=== PATIENT | male | born 1970 | race American Indian/Alaskan Native ===

== ENCOUNTER 2018-08-17 11:46 | Inpatient (IN) | payer MEDICAID ==
[2018-08-17] MEDS ORDERED: Sodium Chloride 0.9% 1,000 ML IV STA (12:13)
--- NOTE | 2018-08-17 12:19 | ED PDOC ---
HPI: Altered Mental Status Time Seen by Provider: 08/17/18 11:59 Chief Complaint (Nursing): Altered Mental Status Chief Complaint (Provider): Altered Mental Status History Per: Family, Other Onset/Duration Of Symptoms: Hrs (1) Current Symptoms Are (Timing): Better Description Of Symptoms: Difficult To Arouse Additional Complaint(s): 48 year old male brought down from acute rehab after the patient experienced an episode of acute unresponsiveness lasting a few minutes, followed by drooling. Family notes no seizure activity. Patient is non-verbal, but able to indicate no pain and no recollection of event. Past Medical History - Family History Family History: States: Unknown Family Hx - Allergies Allergies/Adverse Reactions: Allergies Allergy/AdvReac Type Severity Reaction Status Date / Time No Known Allergies Allergy Verified 08/17/18 11:57 Review of Systems ROS Statement: Except As Marked, All Systems Reviewed And Found Negative Neurological: Positive for: Other (unresponsiveness; drooling). Negative for: Seizures Physical Exam - Reviewed Nursing Documentation Reviewed: Yes Vital Signs Reviewed: Yes - Physical Exam Appears: Positive for: Non-toxic, No Acute Distress Head Exam: Positive for: ATRAUMATIC, NORMAL INSPECTION, NORMOCEPHALIC Skin: Positive for: Normal Color, Warm, Dry. Negative for: Rash Eye Exam: Positive for: EOMI, Normal appearance, PERRL ENT: Positive for: Normal ENT Inspection Neck: Positive for: Normal, Painless ROM, Supple Cardiovascular/Chest: Positive for: Regular Rate, Rhythm. Negative for: Murmur Respiratory: Positive for: Normal Breath Sounds. Negative for: Respiratory Distress Gastrointestinal/Abdominal: Positive for: Normal Exam, Soft. Negative for: Tenderness Back: Positive for: Normal Inspection. Negative for: L CVA Tenderness, R CVA Tenderness, Vertebral Tenderness Extremity: Positive for: Normal ROM. Negative for: Deformity Neurologic/Psych: Positive for: Alert (awake, able to indicate awareness and responsiveness by mouthing words), Motor/Sensory Deficits (chronic tremors to the upper and lower extremitys with spasticity to the lower extremities) - Laboratory Results Result Diagrams: 08/17/18 12:10 08/17/18 12:10 Medical Decision Making Medical Decision Makin Impression: shortness of breath - resolved Plan: -CT head w/o contrast -EKG -CMP -Urine dip -CBC -CXR -Glucose -1L NS at 150cc/hr -Reevaluation Scribe Attestation: Documented by Nader Newell, acting as a scribe for Sheela Hein MD. Provider Scribe Attestation: All medical record entries made by the Scribe were at my direction and perso bela dictated by me. I have reviewed the chart and agree that the record accurately reflects my personal performance of the history, physical exam, medical decision making, and the department course for this patient. I have also personally directed, reviewed, and agree with the discharge instructions and disposition. Disposition - Clinical Impression Clinical Impression: Seizure - Patient ED Disposition Is Patient to be Admitted: Yes - Disposition Disposition Time: 13:50 Condition: FAIR Forms: [employer] (Albanian) - Pt Status Changed To: Hospital Disposition Of: Observation - POA Present On Arrival: None
--- NOTE | 2018-08-17 12:41 | RAD ---
Date of service: 08/17/2018 HISTORY: cough COMPARISON: No prior. FINDINGS: LUNGS: No active pulmonary disease. PLEURA: No significant pleural effusion identified, no pneumothorax apparent. CARDIOVASCULAR: No aortic atherosclerotic calcification present. Normal cardiac size. No pulmonary vascular congestion. OSSEOUS STRUCTURES: Thoraco lumbar dextroscoliosis. VISUALIZED UPPER ABDOMEN: Partially visualized IVC filter in place. Gastric PEG tube apparent OTHER FINDINGS: None. IMPRESSION: No acute cardiopulmonary pathology. Specifically no pulmonary infiltrate noted. Other findings as above.
--- NOTE | 2018-08-17 13:09 | CT ---
Date of service: 08/17/2018 PROCEDURE: CT HEAD WITHOUT CONTRAST. HISTORY: r/o bleed COMPARISON: None available. TECHNIQUE: Axial computed tomography images were obtained through the head/brain without intravenous contrast. Radiation dose: Total exam DLP = 928.19 mGy-cm. This CT exam was performed using one or more of the following dose reduction techniques: Automated exposure control, adjustment of the mA and/or kV according to patient size, and/or use of iterative reconstruction technique. FINDINGS: HEMORRHAGE: There is an approximately 1.2 cm of relative hyperdensity of a left frontal lobe cortical gyrus which may represent a coalescence of petechial hemorrhage here with thread-like hyperdensity over the left meninges here. Findings are noted on axial series 4, image 32. Surrounding this site there is asymmetrical left subcortical hypodensity in part this is likely due to microvascular ischemic change and/or CSF reabsorption in this patient with large bilateral ventricles. No comparison studies to assess for any interval change here is noted. Note is made that these findings also border left calvarial postsurgical changes. No deeper areas of intraparenchymal hemorrhage are seen. No midline shift seen. No intraventricular blood noted. BRAIN: Periventricular extensive hypodensities compatible with CSF transependymal mole reabsorption and/or microvascular ischemic changes-no comparison studies are available to assess chronicity. These findings are asymmetrically prominent in the left frontal lobe where left frontal lobe subcortical hypodensity surrounds an area of relative left frontal gyral hyperdensity-possibly representing some trace gyral petechial hemorrhage here. No arm deeper intraparenchymal or intraventricular blood noted. VENTRICLES: Third 4th and lateral ventricles all dilated. CALVARIUM: Extensive calvarial changes large sub occipital craniectomy. Left frontal craniotomy. PARANASAL SINUSES: Unremarkable as visualized. No significant inflammatory changes. MASTOID AIR CELLS: Unremarkable as visualized. No inflammatory changes. OTHER FINDINGS: CSF like cystic structure in the posterior fossa subjacent to the sub occipital craniectomy. IMPRESSION: No midline shift seen. A symmetrical relative left frontal lobe general hyperdensity possibly relating to coalescent petechial gyral hemorrhage here. The left subcortical hypodensity is asymmetrically prominent and blends with the left frontal horn periventricular hypodensity. Chronicity of this appearance is not known. Comparison with prior studies recommended. No midline shift. No large extra-axial blood collections noted. Thin small left frontal lobe meningeal/extra-axial trace blood and/or other thin thread-like postop no intraparenchymal hemorrhage noted. Hyperdensity changes possible. No midline shift or intraventricular hemorrhage. Prominent ventriculomegaly-as above. Suboccipital craniectomy bordering 4 x 2 cm posterior fossa cystic structure CSF like. Comparison with prior studies recommended to assess for any interval changes here Comment the hyperdensity compatible with possible left frontal gyral coalescent petechial hemorrhage was called in to the ER and directly discussed with the ER physician Dr. Alfred at approximately 12:57 p.m. on 08/17/2018 prior to completing this dictation. Follow-up recommended. Comparison with prior studies also suggested
[2018-08-17 13:26] LABS: BASO % 0.5 % (0.0-2.0); EOS # 0.1 K/uL (0.0-0.7); EOS % 1.6 % (0.0-4.0); HEMOGLOBIN 12.9 g/dL (12.0-18.0); LYMPH # 1.5 K/uL (1.0-4.3); LYMPH % 26.3 % (20.0-40.0); MEAN CELL VOLUME 91.1 fl (80.0-94.0); MEAN CORPUSCULAR HEMOGLOBIN 29.9 pg (27.0-31.0); MEAN CORPUSCULAR HGB CONC 32.9 g/dL (33.0-37.0); MONO # 0.4 K/uL (0.0-0.8); MONO % 6.8 % (0.0-10.0); NEUT # 3.8 K/uL (1.8-7.0); NEUT % 64.8 % (50.0-75.0); NRBC % 0.1 % (0.0-0.0); RBC 4.3 Mil/uL (4.40-5.90); RED CELL DISTRIBUTION WIDTH 13.5 % (11.5-14.5); WHITE BLOOD COUNT 5.8 K/uL (4.8-10.8)
[2018-08-17 13:37] LABS: ALB/GLOB RATIO 1.1 (1.0-2.1); ALBUMIN 3.8 g/dL (3.5-5.0); ALT/SGPT 46 U/L (21-72); AST/SGOT 53 U/L (17-59); BLOOD UREA NITROGEN 12 mg/dl (9-20); CALCIUM 9.4 mg/dL (8.4-10.2); GFR NON-AFRICAN AMERICAN > 60
--- NOTE | 2018-08-17 17:00 | RAD ---
Date of service: 08/17/2018 HISTORY: ams, r/u aspiration COMPARISON: Plain radiograph performed earlier the same day FINDINGS: LUNGS: The lungs are well inflated and clear. PLEURA: No pleural effusions or pneumothorax. CARDIOVASCULAR: The heart is normal in size. No aortic atherosclerotic calcification present. OSSEOUS STRUCTURES: Within normal limits for the patient's age. VISUALIZED UPPER ABDOMEN: Normal. OTHER FINDINGS: None. IMPRESSION: No acute findings.
--- NOTE | 2018-08-17 18:01 | CT ---
Date of service: 08/17/2018 PROCEDURE: CT HEAD WITHOUT CONTRAST. HISTORY: compare to previous ct; change in hemorrhage size COMPARISON: 08/17/2018. CT head. Study completed 12:33. TECHNIQUE: Axial computed tomography images were obtained through the head/brain without intravenous contrast. Supplemental Coronal and Sagittal projections created and reviewed. Radiation dose: Total exam DLP = 776.18 mGy-cm. This CT exam was performed using one or more of the following dose reduction techniques: Automated exposure control, adjustment of the mA and/or kV according to patient size, and/or use of iterative reconstruction technique. FINDINGS: HEMORRHAGE: Small focus of hemorrhage adjacent to the anterior horn of the left lateral ventricle is again identified. This does not appreciated to be appreciably different. There are subtle changes in positioning as well as considerable patient related motion induced artifact obscuring this area. BRAIN: Effacement of cortical sulci again seen, this is diffuse. Differentiation between melendrez and white matter however is preserved. Frontal focus of diminished attenuation likely right frontal infarct. No atrophy or chronic microvascular ischemic changes. Considerable postoperative changes affecting the cerebellar hemispheres interposed between the craniotomy site and the markedly dilated 4th ventricle. VENTRICLES: Stable ventriculomegaly. The entire ventricular system is dilated. CALVARIUM: Stable post craniotomy findings occipital region and left fronto parietal region. PARANASAL SINUSES: Unremarkable as visualized. No significant inflammatory changes. MASTOID AIR CELLS: Unremarkable as visualized. No inflammatory changes. OTHER FINDINGS: None. IMPRESSION: No appreciable change in left frontal hemorrhage. Limitations of the current examination: Streak artifact from patient motion and positioning relative to the recent study preclude optimal comparison Accounting for differences in technique additional findings are approximately stable findings.
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
--- NOTE | 2018-08-17 19:35 | CARD ---
APPROVED REPORT Date of service: 08/17/2018 EKG Measurement Heart [id number] <Conclusion> Normal sinus rhythm Baseline artifact Cannot rule out ST changes Abnormal ECG
[2018-08-18 05:28] LABS: HEMOGLOBIN 12.4 g/dL (12.0-18.0); MEAN CELL VOLUME 91.2 fl (80.0-94.0); MEAN CORPUSCULAR HEMOGLOBIN 29.8 pg (27.0-31.0); MEAN CORPUSCULAR HGB CONC 32.6 g/dL (33.0-37.0); RBC 4.16 Mil/uL (4.40-5.90); RED CELL DISTRIBUTION WIDTH 13.7 % (11.5-14.5); WHITE BLOOD COUNT 5.6 K/uL (4.8-10.8)
[2018-08-18 05:35] LABS: BLOOD UREA NITROGEN 11 mg/dl (9-20); CALCIUM 9.3 mg/dL (8.4-10.2); GFR NON-AFRICAN AMERICAN > 60
[2018-08-18 06:41] LABS: INR 1.1; PROTHROMBIN TIME 12.7 Seconds (9.8-13.1)
[2018-08-18 06:44] LABS: PARTIAL THROMBOPLASTIN TIME 32.8 Seconds (25.6-37.1)
[2018-08-18] MEDS: Multivitamin Vitamin B Complex (Nephro-Vite) Tab PO SCH (09:13)
[2018-08-19] MEDS: Multivitamin Vitamin B Complex (Nephro-Vite) Tab PO SCH (09:52)
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
--- NOTE | 2018-08-19 10:44 | CP.PCM.PN ---
Objective - Vital Signs/Intake and Output Vital Signs (last 24 hours): Temp Pulse Resp BP Pulse Ox 97.3 F L 101 H 20 96/60 L 97 08/19/18 07:38 08/19/18 07:38 08/19/18 07:38 08/19/18 07:38 08/19/18 07:38 - Medications Medications: Current Medications Acetaminophen (Tylenol 325mg Tab) 650 mg PO Q6 PRN PRN Reason: Pain, Mild (1-3) Levetiracetam (Keppra) 500 mg PO Q12 [facility] Last Admin: 08/19/18 09:52 Dose: 500 mg Ondansetron HCl (Zofran Inj) 4 mg IVP Q6 PRN PRN Reason: Nausea/Vomiting Vitamin B Complex/Vit C/Folic Acid (Nephro-Radha) 1 tab PO DAILY [facility] Last Admin: 08/19/18 09:52 Dose: 1 tab - Labs Labs: 08/18/18 04:55 08/18/18 04:55 PT 12.7 Seconds (9.8-13.1) 08/18/18 06:05 INR 1.1 08/18/18 06:05 APTT 32.8 Seconds (25.6-37.1) 08/18/18 06:05
[2018-08-19 10:45] LABS: BASO % 0.5 % (0.0-2.0); EOS # 0.1 K/uL (0.0-0.7); EOS % 1.1 % (0.0-4.0); LYMPH # 1.9 K/uL (1.0-4.3); LYMPH % 31.3 % (20.0-40.0); MEAN CELL VOLUME 90.5 fl (80.0-94.0); MEAN CORPUSCULAR HEMOGLOBIN 30.2 pg (27.0-31.0); MEAN CORPUSCULAR HGB CONC 33.4 g/dL (33.0-37.0); MEAN PLATELET VOLUME 6.9 fl (7.2-11.7); MONO # 0.4 K/uL (0.0-0.8); MONO % 6.4 % (0.0-10.0); NEUT # 3.8 K/uL (1.8-7.0); NEUT % 60.7 % (50.0-75.0); NRBC % 0.1 % (0.0-0.0); RBC 4.31 Mil/uL (4.40-5.90); RED CELL DISTRIBUTION WIDTH 13.7 % (11.5-14.5); WHITE BLOOD COUNT 6.2 K/uL (4.8-10.8)
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
--- NOTE | 2018-08-19 14:45 | CP.PCM.PN ---
Subjective - Date & Time of Evaluation Date of Evaluation: 08/19/18 Time of Evaluation: 14:39 - Subjective Subjective: called to evaluate this pt CT from 2 days ago shows hydrocephalus no prior studies available to see if this has worsened. There is no equipment at [place] to do a shunt, and would be difficult to get over weekend. The alternative would be a ventriculostomy , and temporizing until we can get equipment in Wednesday or Wednesday. This is a very poor second choice for many reasons It would be best to transfer the patient back to [facility] where he has had his prior studies and treatment. I discussed this with Dr Morataya who agrees and will arrange transfer Objective - Vital Signs/Intake and Output Vital Signs (last 24 hours): Temp Pulse Resp BP Pulse Ox 97.6 F 106 H 20 96/66 L 97 08/19/18 12:51 08/19/18 12:51 08/19/18 12:51 08/19/18 12:51 08/19/18 12:51 - Medications Medications: Current Medications Acetaminophen (Tylenol 325mg Tab) 650 mg PO Q6 PRN PRN Reason: Pain, Mild (1-3) Levetiracetam (Keppra) 250 mg PO ONCE ONE Stop: 08/19/18 14:46 Levetiracetam (Keppra) 750 mg PO Q12 [facility] Mirtazapine (Remeron) 7.5 mg PO HS [facility] Ondansetron HCl (Zofran Inj) 4 mg IVP Q6 PRN PRN Reason: Nausea/Vomiting Vitamin B Complex/Vit C/Folic Acid (Nephro-Radha) 1 tab PO DAILY [facility] Last Admin: 08/19/18 09:52 Dose: 1 tab - Labs Labs: 08/19/18 10:29 08/18/18 04:55 PT 12.7 Seconds (9.8-13.1) 08/18/18 06:05 INR 1.1 08/18/18 06:05 APTT 32.8 Seconds (25.6-37.1) 08/18/18 06:05
[2018-08-19] MEDS ORDERED: levETIRAcetam 100 mg/ml (5ml) Oral Syringe GT ONE (17:00)
[2018-08-19] MEDS: levETIRAcetam 100 mg/ml (5ml) Oral Syringe GT SCH (20:06)
[2018-08-20] MEDS: Multivitamin Vitamin B Complex (Nephro-Vite) Tab PO SCH (08:41)
[2018-08-20] MEDS: levETIRAcetam 100 mg/ml (5ml) Oral Syringe GT SCH ×2 (08:41→20:54)
[2018-08-21] MEDS: levETIRAcetam 100 mg/ml (5ml) Oral Syringe GT SCH ×2 (08:15→21:46)
[2018-08-21] MEDS: Multivitamin Vitamin B Complex (Nephro-Vite) Tab PO SCH (08:15)
--- NOTE | 2018-08-21 15:35 | CP.PCM.PN ---
Subjective - Date & Time of Evaluation Date of Evaluation: 08/21/18 Time of Evaluation: 14:00 - Subjective Subjective: Patient is visiting with his family, and his neuro exam is at baseline. No other spells of confusion noted. Tolerating medication well. Awaiting transfer to [facility] for shunt placement. ROS: no headache, no dizziness ON exam: Patient is mute, but follows one step commands. He is contracted and weak diffusely. Legs are 2/5 bilaterally +3 dtr ul and ll bl. TOes downgoing. No clonus. Objective - Vital Signs/Intake and Output Vital Signs (last 24 hours): Temp Pulse Resp BP Pulse Ox 97.4 F L 87 20 95/63 L 96 08/21/18 12:18 08/21/18 12:18 08/21/18 12:18 08/21/18 12:18 08/21/18 12:18 Intake and Output: 08/21/18 08/21/18 06:59 18:59 Intake Total 250 Output Total 600 Balance -350 - Medications Medications: Current Medications Acetaminophen (Tylenol 325mg Tab) 650 mg PO Q6 PRN PRN Reason: Pain, Mild (1-3) Levetiracetam (Keppra) 750 mg GT Q12 [facility] Last Admin: 08/21/18 08:15 Dose: 750 mg Ondansetron HCl (Zofran Inj) 4 mg IVP Q6 PRN PRN Reason: Nausea/Vomiting Vitamin B Complex/Vit C/Folic Acid (Nephro-Radha) 1 tab PO DAILY [facility] Last Admin: 08/21/18 08:15 Dose: 1 tab - Labs Labs: 08/19/18 10:29 08/18/18 04:55 PT 12.7 Seconds (9.8-13.1) 08/18/18 06:05 INR 1.1 08/18/18 06:05 APTT 32.8 Seconds (25.6-37.1) 08/18/18 06:05 Assessment and Plan - Assessment and Plan (Free Text) Assessment: 48 yr old male with profound hydrocephalus, and seizures who is now awaiting transfer to [facility] for OIL SPREADER OPERATOR shunt placement. Plan: 1. Continue current care 2. Await transfer Dr. Morataya
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
--- NOTE | 2018-08-21 22:04 | PQF ---
PROVIDER RESPONSE TEXT: Present on admission REVIEWER QUERY TEXT: Pressure Ulcer Type Pressure ulcer is documented in the Medical Record by the ER MD and housekeeper. . Please specify t he location, present on admission status and stage if you concur or other explanation. Location and laterality of pressure ulcer(s): POA status of each pressure ulcer: -- Not present on admission -- Present on admission -- Other -- Clinically unable to determine -- Unknown Stage of each pressure ulcer (National Pressure Ulcer Advisory Panel definitions): -- Stage I: Intact skin with non-blanchable redness of a localized area -- Stage II: Partial thickness skin loss involving dermis with a shallow open ulcer or an open serum -filled blister -- Stage III: Full thickness skin loss involving damage or necrosis of subcutaneous tissue -- Stage IV: Full thickness skin loss with exposed bone, tendon or muscle -- Unstageable: Full thickness tissue loss in which the base of the ulcer is covered by slough and/o r eschar in the wound bed The patient's Clinical Indicators include: ER MD: POA: 3 cm stage 2 decubitus on sacral area housekeeper: Right sacrum stage II pressure ulcer . See full note Query created by: Edith Sanchez on 08/19/2018 2:03 PM Electronically signed by: Ovidio Fletcher 08/21/2018 10:01 PM
--- NOTE | 2018-08-21 22:04 | PQF ---
PROVIDER RESPONSE TEXT: underweight REVIEWER QUERY TEXT: Documentation Clarification 2 Physician Clarification Queries: 1) Are you in agreement with the BMI of 17.2 listed in the EMR? If yes please document in your notes. 2) If in agreement with the BMI of 17.2 is there an associated diagnosis to go along with the BMI: ie : Underweight, Cachexia, etc OR Unable to determine OR Other explanation of clinical findings-- Please specify OR No associated diagnosis Your help is requested in clarifying the following clinical documentation, if you can please further specify in the medical record and discharge summary. The patient's Clinical Indicators include: S/P Traumatic Brain Injury. + Peg tube Hat Block Bench Hand: BMI 17.2 ( Underweight < 18.5 ) . See consult Query created by: Edith Sanchez on 08/19/2018 2:07 PM Electronically signed by: Ovidio Fletcher 08/21/2018 10:01 PM
[2018-08-22] MEDS: levETIRAcetam 100 mg/ml (5ml) Oral Syringe GT SCH ×2 (08:50→22:07)
[2018-08-22] MEDS: Multivitamin Vitamin B Complex (Nephro-Vite) Tab PO SCH (08:50)
--- NOTE | 2018-08-22 10:56 | CP.PCM.PN ---
Subjective - Date & Time of Evaluation Date of Evaluation: 08/22/18 Time of Evaluation: 10:55 - Subjective Subjective: Neuro Follow-Up Note: Mr. Gates was evaluate this morning at bedside. Sleepy but arousable; follows simple, one step commands. No acute overnight events ; chart reviewed. He is still pending transfer to [facility] for HEALTH PROMOTION EDUCATOR Shunt placement. Objective - Vital Signs/Intake and Output Vital Signs (last 24 hours): Temp Pulse Resp BP Pulse Ox 98.4 F 104 H 20 92/62 L 96 08/22/18 07:40 08/22/18 07:40 08/22/18 07:40 08/22/18 07:40 08/22/18 07:40 Intake and Output: 08/22/18 08/22/18 06:59 18:59 Intake Total 737 Output Total 480 Balance 257 - Medications Medications: Current Medications Acetaminophen (Tylenol 325mg Tab) 650 mg PO Q6 PRN PRN Reason: Pain, Mild (1-3) Levetiracetam (Keppra) 750 mg GT Q12 [facility] Last Admin: 08/22/18 08:50 Dose: 750 mg Ondansetron HCl (Zofran Inj) 4 mg IVP Q6 PRN PRN Reason: Nausea/Vomiting Vitamin B Complex/Vit C/Folic Acid (Nephro-Radha) 1 tab PO DAILY [facility] Last Admin: 08/22/18 08:50 Dose: 1 tab - Labs Labs: 08/19/18 10:29 08/18/18 04:55 PT 12.7 Seconds (9.8-13.1) 08/18/18 06:05 INR 1.1 08/18/18 06:05 APTT 32.8 Seconds (25.6-37.1) 08/18/18 06:05 - Constitutional Appears: No Acute Distress - Head Exam Head Exam: ATRAUMATIC, NORMAL INSPECTION, NORMOCEPHALIC - Eye Exam Eye Exam: Normal appearance, PERRL Pupil Exam: PERRL - ENT Exam ENT Exam: Mucous Membranes Moist - Neck Exam Neck Exam: Normal Inspection - Respiratory Exam Respiratory Exam: NORMAL BREATHING PATTERN - Extremities Exam Extremities Exam: absent: Full ROM (contracted) - Neurological Exam Additional comments: Patient is mute Able to follow one step, simple commands. Able to open eyes upon request. Contracted and weak to BUE and BLE. Reflexes brisk b/l. No clonus noted. Unable to assess sensation, fine motor, and strength today 2/2 pt is sleepy and not following commands to do so. - Psychiatric Exam Additional comments: unable to assess as pt is mute - Skin Skin Exam: Normal Color Assessment and Plan - Assessment and Plan (Free Text) Assessment: Imaging: -Repeat CT Head (08/17/18): No appreciable change in left frontal hemorrhage. Limitations of the current examination: Streak artifact from patient motion and positioning relative to the recent study preclude optimal comparison. Accounting for differences in technique additional findings are approximately stable findings. -CT Head (08/17/18): No midline shift seen. A symmetrical relative left frontal lobe general hyperdensity possibly relating to coalescent petechial gyral hemorrhage here. The left subcortical hypodensity is asymmetrically prominent and blends with the left frontal horn periventricular hypodensity. Chronicity of this appearance is not known. Comparison with prior studies recommended. No midline shift. No large extra-axial blood collections noted. Thin small left frontal lobe meningeal/extra-axial trace blood and/or other thin thread-like postop no intraparenchymal hemorrhage noted. Hyperdensity changes possible. No midline shift or intraventricular hemorrhage. Prominent ventriculomegaly-as above. Suboccipital craniectomy bordering 4 x 2 cm posterior fossa cystic structure CSF like. Comparison with prior studies recommended to assess for any interval changes here. Comment the hyperdensity compatible with possible left frontal gyral coalescent petechial hemorrhage was called in to the ER and directly discussed with the ER physician Dr. Alfred at approximately 12:57 p.m. on 08/17/2018 prior to completing this dictation. Follow-up recommended. Comparison with prior studies also suggested A/P: Mr. Gates is here for seizure and hydrcephalus. Dr. Morataya reviewed both head CT's last week and noted hydrocephalus, which is not mentioned on the CT reports above. Mr. Gates was evaluated by neurosurgery. It is recommended that pt be transferred to [facility] for HEALTH PROMOTION EDUCATOR Shunt placement. Transfer is in progress. Until then, continue current management and notify Neuro team of any acute changes in patient's condition. Continue Keppra Q12. Thank you. Case discussed with Dr. Morataya.
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
[2018-08-23 10:48] LABS: HEMOGLOBIN 12.6 g/dL (12.0-18.0); MEAN CELL VOLUME 92.5 fl (80.0-94.0); MEAN CORPUSCULAR HEMOGLOBIN 30.1 pg (27.0-31.0); MEAN CORPUSCULAR HGB CONC 32.6 g/dL (33.0-37.0); RBC 4.19 Mil/uL (4.40-5.90); WHITE BLOOD COUNT 7.2 K/uL (4.8-10.8)
[2018-08-23] MEDS: levETIRAcetam 100 mg/ml (5ml) Oral Syringe GT SCH ×2 (10:57→22:14)
[2018-08-23] MEDS: Multivitamin Vitamin B Complex (Nephro-Vite) Tab PO SCH (10:58)
[2018-08-23 11:10] LABS: ALB/GLOB RATIO 1.1 (1.0-2.1); ALBUMIN 3.8 g/dL (3.5-5.0); ALT/SGPT 49 U/L (21-72); AST/SGOT 54 U/L (17-59); BLOOD UREA NITROGEN 14 mg/dl (9-20); CALCIUM 9.5 mg/dL (8.4-10.2); GFR NON-AFRICAN AMERICAN > 60
--- NOTE | 2018-08-23 19:03 | CARD ---
APPROVED REPORT Date of service: 08/23/2018 EKG Measurement Heart [id number] <Conclusion> Sinus tachycardia Otherwise normal ECG
[2018-08-24] MEDS: levETIRAcetam 100 mg/ml (5ml) Oral Syringe GT SCH ×2 (09:02→21:34)
[2018-08-24] MEDS: Multivitamin Vitamin B Complex (Nephro-Vite) Tab PO SCH (09:03)
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
--- NOTE | 2018-08-24 12:03 | CP.PCM.PCO ---
Assessment & Plan - Assessment and Plan (Free Text) Assessment: patient seen this morning, periods of lethargy, still pending transfer to [facility] with waiting list Spoke with ( covering for ) , who recommended transfer to [facility] for COMPUTER APPLICATIONS ENGINEER shunt in am with Call placed to hospitalist Dr.Naresh Marte who will accept and admit patient to ; Above plan d/w mother Lizet
--- NOTE | 2018-08-24 12:07 | CP.PCM.PN ---
Subjective - Date & Time of Evaluation Date of Evaluation: 08/24/18 Time of Evaluation: 12:05 - Subjective Subjective: Pt never transferred to [facility] as recommended apparently there is a "backup" therefore rec arranging tr to [facility] will try to arrange for VPS tmw Objective - Vital Signs/Intake and Output Vital Signs (last 24 hours): Temp Pulse Resp BP Pulse Ox 97.6 F 98 H 20 101/64 96 08/24/18 07:41 08/24/18 07:41 08/24/18 07:41 08/24/18 07:41 08/24/18 07:41 - Medications Medications: Current Medications Acetaminophen (Tylenol 325mg Tab) 650 mg PO Q6 PRN PRN Reason: Pain, Mild (1-3) Levetiracetam (Keppra) 750 mg GT Q12 [facility] Last Admin: 08/24/18 09:02 Dose: 750 mg Ondansetron HCl (Zofran Inj) 4 mg IVP Q6 PRN PRN Reason: Nausea/Vomiting Vitamin B Complex/Vit C/Folic Acid (Nephro-Radha) 1 tab PO DAILY [facility] Last Admin: 08/24/18 09:03 Dose: 1 tab - Labs Labs: 08/23/18 10:32 08/23/18 10:32 PT 12.7 Seconds (9.8-13.1) 08/18/18 06:05 INR 1.1 08/18/18 06:05 APTT 32.8 Seconds (25.6-37.1) 08/18/18 06:05
--- NOTE | 2018-08-24 13:40 | CP.PCM.PN ---
Subjective - Date & Time of Evaluation Date of Evaluation: 08/24/18 Time of Evaluation: 13:40 - Subjective Subjective: Neuro Follow-Up Note: Mr. Gates was evaluate this afternoon at bedside. Has periods of lethargy but is arousable. Today he is not following commands. Chart reviewed. Transfer to [facility] for CROWN PRESSER Shunt placement cancelled as there are about 15 patients ahead of Mr. Gates on a transfer waiting list. Arrangements being made to transfer pt to [facility] this afternoon for VPS placement tentatively for tomorrow morning with neurosurgery. Discussed plan with QUANG Ryan. Objective - Vital Signs/Intake and Output Vital Signs (last 24 hours): Temp Pulse Resp BP Pulse Ox 97.5 F L 102 H 20 108/67 98 08/24/18 12:17 08/24/18 12:17 08/24/18 12:17 08/24/18 12:17 08/24/18 12:17 - Medications Medications: Current Medications Acetaminophen (Tylenol 325mg Tab) 650 mg PO Q6 PRN PRN Reason: Pain, Mild (1-3) Levetiracetam (Keppra) 750 mg GT Q12 [facility] Last Admin: 08/24/18 09:02 Dose: 750 mg Ondansetron HCl (Zofran Inj) 4 mg IVP Q6 PRN PRN Reason: Nausea/Vomiting Vitamin B Complex/Vit C/Folic Acid (Nephro-Radha) 1 tab PO DAILY [facility] Last Admin: 08/24/18 09:03 Dose: 1 tab - Labs Labs: 08/23/18 10:32 08/23/18 10:32 PT 12.7 Seconds (9.8-13.1) 08/18/18 06:05 INR 1.1 08/18/18 06:05 APTT 32.8 Seconds (25.6-37.1) 08/18/18 06:05 - Constitutional Appears: No Acute Distress (periods of lethargy; arousable) - Head Exam Head Exam: ATRAUMATIC, NORMAL INSPECTION - Eye Exam Eye Exam: EOMI - ENT Exam ENT Exam: Mucous Membranes Moist - Neck Exam Neck Exam: Normal Inspection - Respiratory Exam Respiratory Exam: NORMAL BREATHING PATTERN - Neurological Exam Additional comments: Patient is mute; lethargic but is arousable. Unable to follow commands today Contracted and weakness noted to BUE and BLE. Reflexes brisk b/l. No clonus noted. Unable to assess sensation, fine motor, and strength today 2/2 lethargy and unable to follow commands - Psychiatric Exam Additional comments: unable to assess as pt is mute - Skin Skin Exam: Normal Color Assessment and Plan (1) Seizure Assessment & Plan: Imaging reviewed: -Repeat CT Head (08/17/18): No appreciable change in left frontal hemorrhage. Limitations of the current examination: Streak artifact from patient motion and positioning relative to the recent study preclude optimal comparison. Accountin g for differences in technique additional findings are approximately stable findings. -CT Head (08/17/18): No midline shift seen. A symmetrical relative left frontal lobe general hyperdensity possibly relating to coalescent petechial gyral hemorrhage here. The left subcortical hypodensity is asymmetrically prominent and blends with the left frontal horn periventricular hypodensity. Chronicity of this appearance is not known. Comparison with prior studies recommended. No midline shift. No large extra-axial blood collections noted. Thin small left frontal lobe meningeal/extra-axial trace blood and/or other thin thread-like postop no intraparenchymal hemorrhage noted. Hyperdensity changes possible. No midline shift or intraventricular hemorrhage. Prominent ventriculomegaly-as above. Suboccipital craniectomy bordering 4 x 2 cm posterior fossa cystic structure CSF like. Comparison with prior studies recommended to assess for any interval changes here. Comment the hyperdensity compatible with possible left frontal gyral coalescent petechial hemorrhage was called in to the ER and directly discussed with the ER physician Dr. Alfred at approximately 12:57 p.m. on 08/17/2018 prior to completing this dictation. Follow-up recommended. Comparison with prior studies also suggested Mr. Gates is here for seizures and hydrocephalus. Dr. Morataya reviewed both head CT's last week and noted hydrocephalus, which is not mentioned on the CT reports above. Mr. Gates has been evaluated by neurosurgery, and at the time of initial consultation, transfer to [facility] for CROWN PRESSER Shunt placement was recommended. Transfer to [facility] has been cancelled due to 15 other patients ahead of Mr. Gates on their transfer wait list. Transfer to [facility] is being arranged for this afternoon. OR for VPS placement with neurosurgery is planned tentatively for tomorrow morning. -Continue seizure precautions. -Continue Keppra as ordered -Notify neuro team of acute changes -We will follow up with the pt at [facility] once he is transferred. Case discussed with Dr. Morataya. Status: Acute
[2018-08-24 21:57] VITALS: BP 90/61; PULSE 102; RESP 18; TEMP 97.7; O2SAT 98
== END 2018-08-24 23:00 | disposition short-term general hospital (02) | DRG 533 ==
LOC: H.ER 11:46 → H.ERHOLD 13:48 → H.TEL 19:00 → OBSVTOIN 08-19 10:41
PROVIDERS: ADMIT Family Medicine; ATTEND Family Medicine
DX: G91.9 Hydrocephalus, unspecified (principal); L89.152 Pressure ulcer of sacral region, stage 2; G40.509 Epileptic seizures related to external causes, not intractable, without status epilepticus; Z93.1 Gastrostomy status; Z74.01 Bed confinement status; Z87.820 Personal history of traumatic brain injury; R13.10 Dysphagia, unspecified; I69.365 Other paralytic syndrome following cerebral infarction, bilateral; I69.319 Unspecified symptoms and signs involving cognitive functions following cerebral infarction; R00.0 Tachycardia, unspecified; R63.6 Underweight; Z68.1 Body mass index [BMI] 19.9 or less, adult; G40.909 Epilepsy, unspecified, not intractable, without status epilepticus

== ENCOUNTER 2018-08-26 15:48 | Inpatient (IN) | payer MEDICAID ==
[2018-08-26 22:30] VITALS: BMI 16.7
[2018-08-27] MEDS: levETIRAcetam 100 mg/ml (5ml) Oral Syringe PEG SCH ×2 (09:47→22:43)
[2018-08-27] MEDS: Multivitamin Vitamin B Complex (Nephro-Vite) Tab PEG SCH (09:47)
[2018-08-27] MEDS ORDERED: Amantadine 50 mg/5 ml Syrup (473 ml) PEG SCH (18:00)
[2018-08-28] MEDS: Multivitamin Vitamin B Complex (Nephro-Vite) Tab PEG SCH (08:16)
[2018-08-28] MEDS: levETIRAcetam 100 mg/ml (5ml) Oral Syringe PEG SCH ×2 (08:17→23:30)
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
--- NOTE | 2018-08-29 07:17 | CP.PCM.PN ---
Subjective - Date & Time of Evaluation Date of Evaluation: 08/28/18 Time of Evaluation: 18:00 - Subjective Subjective: Patient remains non verbal Does not respond to any verbal stimuli. Has no fever VSS stable. Objective - Vital Signs/Intake and Output Vital Signs (last 24 hours): Temp Pulse Resp BP Pulse Ox 98.3 F 96 H 18 118/82 100 08/29/18 03:12 08/28/18 21:00 08/28/18 20:16 08/28/18 20:16 08/28/18 20:16 - Medications Medications: Current Medications Amantadine HCl (Amantadine 100 Mg Cap) 200 mg PEG QPM [facility] Last Admin: 08/28/18 17:39 Dose: 200 mg Aspirin (Aspirin) 325 mg PEG DAILY [facility] Last Admin: 08/28/18 08:16 Dose: 325 mg Dantrolene Sodium (Dantrium) 50 mg PO Q8 [facility] Last Admin: 08/29/18 02:18 Dose: 50 mg Levetiracetam (Keppra) 500 mg PEG Q12H [facility] Last Admin: 08/28/18 23:30 Dose: 500 mg Trazodone HCl (Desyrel) 50 mg PEG HS [facility] Last Admin: 08/28/18 23:30 Dose: Not Given Vitamin B Complex/Vit C/Folic Acid (Nephro-Radha) 1 tab PEG DAILY [facility] Last Admin: 08/28/18 08:16 Dose: 1 tab - Eye Exam Eye Exam: Normal appearance - ENT Exam ENT Exam: Mucous Membranes Moist - Respiratory Exam Respiratory Exam: NORMAL BREATHING PATTERN - Cardiovascular Exam Cardiovascular Exam: REGULAR RHYTHM - GI/Abdominal Exam GI & Abdominal Exam: Normal Bowel Sounds - Neurological Exam Neurological Exam: Altered Assessment and Plan (1) Hydrocephalus Status: Acute (2) Traumatic brain injury Status: Acute (3) Change in mental status Status: Acute - Assessment and Plan (Free Text) Plan: Cont meds Cont tx Cont PT subacute or emt intermediate
[2018-08-29 08:20] LABS: BASO % 0.4 % (0.0-2.0); EOS % 0.4 % (0.0-4.0); HEMOGLOBIN 11.5 g/dL (12.0-18.0); LYMPH # 1.6 K/uL (1.0-4.3); LYMPH % 16.6 % (20.0-40.0); MEAN CELL VOLUME 91.5 fl (80.0-94.0); MEAN CORPUSCULAR HEMOGLOBIN 29.9 pg (27.0-31.0); MEAN CORPUSCULAR HGB CONC 32.7 g/dL (33.0-37.0); MEAN PLATELET VOLUME 7.3 fl (7.2-11.7); MONO # 0.7 K/uL (0.0-0.8); MONO % 7.3 % (0.0-10.0); NEUT # 7.1 K/uL (1.8-7.0); NEUT % 75.3 % (50.0-75.0); RBC 3.84 Mil/uL (4.40-5.90); RED CELL DISTRIBUTION WIDTH 13.8 % (11.5-14.5); WHITE BLOOD COUNT 9.4 K/uL (4.8-10.8)
[2018-08-29] MEDS: levETIRAcetam 100 mg/ml (5ml) Oral Syringe PEG SCH ×2 (09:51→21:56)
[2018-08-29 10:03] LABS: ALB/GLOB RATIO 0.9 (1.0-2.1); ALBUMIN 3.3 g/dL (3.5-5.0); ALT/SGPT 37 U/L (21-72); AST/SGOT 37 U/L (17-59); BLOOD UREA NITROGEN 9 mg/dl (9-20); CALCIUM 9.3 mg/dL (8.4-10.2); GFR NON-AFRICAN AMERICAN > 60
[2018-08-29] MEDS: Multivitamin Vitamin B Complex (Nephro-Vite) Tab PEG SCH (10:52)
--- NOTE | 2018-08-29 13:24 | RAD ---
Date of service: 08/29/2018 HISTORY: cough COMPARISON: 08/17/2018 FINDINGS: LUNGS: The lungs are well inflated and clear. PLEURA: No pleural effusions or pneumothorax. CARDIOVASCULAR: The heart is normal in size. No aortic atherosclerotic calcification present. OSSEOUS STRUCTURES: Within normal limits for the patient's age. VISUALIZED UPPER ABDOMEN: Normal. OTHER FINDINGS: None. IMPRESSION: No active pulmonary disease.
--- NOTE | 2018-08-29 13:57 | CP.PCM.CON ---
History of Present Illness - History of Present Illness History of Present Illness: Neurology Consultation Note: Mr. Gates is a 48-year-old man with a past medical history of traumatic brain injury, ICH s/p craniectomy, seizure disorder (on Keppra), hydrocephalus s/p ORGANISATION AND METHODS ANALYST shunt on 08/25/18. Neurology was consulted by Dr. Berrios for evaluation after ORGANISATION AND METHODS ANALYST shunt. Today, the patient has been febrile and more somnolent. Labs showed hyponatremia. Neurosurgery was consulted, but no further recommendations were made. Review of Systems - Review of Systems Systems not reviewed;Unavailable: Altered Mental Status Past Patient History - Past Medical History & Family History Past Medical History?: Yes - Past Social History Smoking Status: Never Smoked - CARDIAC Hx Cardiac Disorders: No - PULMONARY Hx Respiratory Disorders: No - NEUROLOGICAL Hx Neurological Disorder: No - HEENT Hx HEENT Problems: No - RENAL Hx Chronic Kidney Disease: No - ENDOCRINE/METABOLIC Hx Endocrine Disorders: No - HEMATOLOGICAL/ONCOLOGICAL Hx Blood Disorders: No Hx AIDS: No Hx Human Immunodeficiency Virus (HIV): No - INTEGUMENTARY Hx Dermatological Problems: No - MUSCULOSKELETAL/RHEUMATOLOGICAL Hx Musculoskeletal Disorders: No Hx Falls: No - GASTROINTESTINAL Hx Gastrointestinal Disorders: No Hx Bowel Surgery: Yes (peg tube) - GENITOURINARY/GYNECOLOGICAL Hx Genitourinary Disorders: Yes Hx Incontinence: Yes - PSYCHIATRIC Hx Psychophysiologic Disorder: No Hx Substance Use: No - SURGICAL HISTORY Hx Surgeries: Yes Other/Comment: craniotomyx2 - ANESTHESIA Hx Anesthesia: Yes Hx Anesthesia Reactions: No Hx Malignant Hyperthermia: No Has any member of the family had a problem w/ anesthesia?: No Meds Allergies/Adverse Reactions: Allergies Allergy/AdvReac Type Severity Reaction Status Date / Time No Known Allergies Allergy Verified 08/17/18 11:57 - Medications Medications: Current Medications Amantadine HCl (Amantadine 100 Mg Cap) 200 mg PEG QPM [facility] Last Admin: 08/28/18 17:39 Dose: 200 mg Aspirin (Aspirin) 325 mg PEG DAILY [facility] Last Admin: 08/29/18 10:52 Dose: 325 mg Dantrolene Sodium (Dantrium) 50 mg PO Q8 [facility] Last Admin: 08/29/18 10:52 Dose: 50 mg Levetiracetam (Keppra) 500 mg PEG Q12H [facility] Last Admin: 08/29/18 09:51 Dose: 500 mg Trazodone HCl (Desyrel) 50 mg PEG HS [facility] Last Admin: 08/28/18 23:30 Dose: Not Given Vitamin B Complex/Vit C/Folic Acid (Nephro-Radha) 1 tab PEG DAILY [facility] Last Admin: 08/29/18 10:52 Dose: 1 tab Physical Exam - Constitutional Appears: Toxic - Head Exam Additional comments: Surgical wound is intact, with slight area of leakage unchanged based on boundaries drawn. - Eye Exam Eye Exam: EOMI, Normal appearance, PERRL - ENT Exam ENT Exam: Mucous Membranes Moist, Normal Exam - Neck Exam Neck exam: Positive for: Normal Inspection - Respiratory Exam Respiratory Exam: Clear to Auscultation Bilateral, NORMAL BREATHING PATTERN - Cardiovascular Exam Cardiovascular Exam: REGULAR RHYTHM, +S1, +S2 - GI/Abdominal Exam GI & Abdominal Exam: Normal Bowel Sounds, Soft. absent: Tenderness - Rectal Exam Rectal Exam: Deferred - Back Exam Back exam: NORMAL INSPECTION - Neurological Exam Neurological exam: Abnormal Gait, Altered, CN II-XII Intact Additional comments: reflexes are brisk, he has generalized weakness, but moves all extremities. Barakat s not follow commands very well, but answers some questions (like name, and location). - Psychiatric Exam Psychiatric exam: Flat Affect Results - Vital Signs Recent Vital Signs: Last Vital Signs Temp 99 F 08/29/18 11:53 Pulse 117 H 08/29/18 11:53 Resp 20 08/29/18 11:53 BP 102/56 L 08/29/18 11:53 Pulse Ox 96 08/29/18 11:53 - Labs Result Diagrams: 08/29/18 07:45 08/29/18 08:00 Labs: Laboratory Results - last 24 hr 08/29/18 08/29/18 08/29/18 07:45 08:00 08:00 WBC 9.4 RBC 3.84 L Hgb 11.5 L Hct 35.2 MCV 91.5 MCH 29.9 MCHC 32.7 L RDW 13.8 Plt Count 396 MPV 7.3 Neut % (Auto) 75.3 H Lymph % (Auto) 16.6 L Travis % (Auto) 7.3 Eos % (Auto) 0.4 Baso % (Auto) 0.4 Neut # (Auto) 7.1 H Lymph # (Auto) 1.6 Travis # (Auto) 0.7 Eos # (Auto) 0.0 Baso # (Auto) 0.0 Sodium 131 L Potassium 4.1 Chloride 98 Carbon Dioxide 23 Anion Gap 14 BUN 9 Creatinine 0.5 L Est GFR ( Amer) > 60 Est GFR (Non-Af Amer) > 60 Random Glucose 112 H Calcium 9.3 Total Bilirubin 0.3 AST 37 ALT 37 Alkaline Phosphatase 69 Total Protein 6.9 Albumin 3.3 L Globulin 3.6 Albumin/Globulin Ratio 0.9 L TSH 3rd Generation 2.64 Assessment & Plan (1) Hydrocephalus Assessment and Plan: S/p shunt. He is febrile, but this may not be related to the shunt. Neurosurgery is consulted. Help is appreciated regarding management. Status: Acute (2) Traumatic brain injury Assessment and Plan: Stable. Will continue current medications. Status: Acute (3) Seizure Assessment and Plan: Continue Keppra at current dose. If hyponatremia persists, we may consider changing to an alternative AED. Thank you for this consultation. Status: Acute
--- NOTE | 2018-08-29 14:15 | CP.PCM.PCO ---
Assessment & Plan - Assessment and Plan (Free Text) Assessment: patient seen and examine , lying in bed , lethargic, Low grade temps noted, 100.1 axillary vss, pt. s/p TIRE SORTER shunt w/ at patient started on Rocephin 1gm daily; Blood cx x 2, ua/ urine cx, chest xray start iv abx post cx and notified regarding low grade temp and MS
[2018-08-29] MEDS: Bacitracin OINT 15GM TOP SCH (16:30)
[2018-08-29 16:46] LABS: SQUAMOUS EPITHIAL 22 /hpf (0-5); URINE BACTERIA RARE (<OCC); URINE BILIRUBIN NEGATIVE (NEGATIVE); URINE BLOOD NEGATIVE (NEGATIVE); URINE CLARITY TURBID (Clear); URINE COLOR AMBER (YELLOW); URINE GLUCOSE (UA) NEG (NEGATIVE); URINE LEUKOCYTE ESTERASE MOD Leu/uL (Negative); URINE PROTEIN NEGATIVE (NEGATIVE)
[2018-08-30 05:36] LABS: HEMOGLOBIN 11.8 g/dL (12.0-18.0); MEAN CELL VOLUME 89.4 fl (80.0-94.0); MEAN CORPUSCULAR HEMOGLOBIN 30.2 pg (27.0-31.0); MEAN CORPUSCULAR HGB CONC 33.7 g/dL (33.0-37.0); RBC 3.9 Mil/uL (4.40-5.90); RED CELL DISTRIBUTION WIDTH 13.6 % (11.5-14.5); WHITE BLOOD COUNT 8.4 K/uL (4.8-10.8)
[2018-08-30 06:24] LABS: BLOOD UREA NITROGEN 11 mg/dl (9-20); CALCIUM 9.1 mg/dL (8.4-10.2); GFR NON-AFRICAN AMERICAN > 60
[2018-08-30] MEDS: Bacitracin OINT 15GM TOP SCH (10:10)
[2018-08-30] MEDS: levETIRAcetam 100 mg/ml (5ml) Oral Syringe PEG SCH ×2 (10:10→21:17)
[2018-08-30] MEDS: Multivitamin Vitamin B Complex (Nephro-Vite) Tab PEG SCH (10:11)
--- NOTE | 2018-08-30 11:51 | CP.PCM.PN ---
Subjective - Date & Time of Evaluation Date of Evaluation: 08/30/18 Time of Evaluation: 11:48 - Subjective Subjective: Neurology Consult Follow-Up Note: Mr. Gates was evaluated this morning in bed. He is POD #5 of PEER EDUCATOR shunt placement at [facility]. The pt remains somnolent today, though he has been afebrile since late yesterday. No acute overnight events; chart reviewed. Objective - Vital Signs/Intake and Output Vital Signs (last 24 hours): Temp Pulse Resp BP Pulse Ox 98.7 F 121 H 40 H 94/88 L 96 08/30/18 11:40 08/30/18 11:40 08/30/18 11:40 08/30/18 11:40 08/30/18 11:40 - Medications Medications: Current Medications Bacitracin (Bacitracin Oint) 1 applic TOP DAILY [facility] Last Admin: 08/30/18 10:10 Dose: 1 applic Cadexomer Iodine (Iodosorb) 1 applic TOP DAILY [facility] Dantrolene Sodium (Dantrium) 50 mg PO Q8 [facility] Last Admin: 08/30/18 00:53 Dose: 50 mg Ceftriaxone Sodium 1 gm/ (Sodium Chloride) 100 mls @ 100 mls/hr IVPB DAILY [facility]; Protocol Last Admin: 08/30/18 10:11 Dose: 100 mls/hr Levetiracetam (Keppra) 500 mg PEG Q12H [facility] Last Admin: 08/30/18 10:10 Dose: 500 mg Vitamin B Complex/Vit C/Folic Acid (Nephro-Radha) 1 tab PEG DAILY [facility] Last Admin: 08/30/18 10:11 Dose: 1 tab - Labs Labs: 08/30/18 04:50 08/30/18 04:50 - Constitutional Appears: No Acute Distress - Head Exam Head Exam: NORMOCEPHALIC Additional comments: surgical site intact, covered w dressing - Eye Exam Eye Exam: Normal appearance Pupil Exam: NORMAL ACCOMODATION, PERRL - ENT Exam ENT Exam: Mucous Membranes Moist - Neck Exam Neck Exam: Normal Inspection - Respiratory Exam Respiratory Exam: NORMAL BREATHING PATTERN - GI/Abdominal Exam Additional comments: peg - Extremities Exam Extremities Exam: absent: Calf Tenderness, Full ROM, Pedal Edema Additional comments: contracted extremities; generalized weakness to ble and bue - Neurological Exam Neurological Exam: Altered Additional comments: -pt is arousable but not following commands today -reflexes brisk b/l -generalized weakness noted to ble and bue - Psychiatric Exam Additional comments: somnolent; not following commands today - Skin Skin Exam: Normal Color Assessment and Plan (1) Hydrocephalus Assessment & Plan: -Mr. Gates is POD #5 of PEER EDUCATOR shunt placement -He is now afebrile -Further management post-op per neurosurgery recommendations. Status: Acute (2) Traumatic brain injury Assessment & Plan: -TBI is stable;continue current medications. -Continue supportive measures. Status: Acute (3) Seizure Assessment & Plan: -Currently on Keppra 500 mg q12. -Na today is 129 (was 131 yesterday). Continue to monitor hyponatremia. If it persists, neuro team may consider d/c Keppra and starting new AED. We will continue to follow up with the pt while in the hospital. Case discussed with Dr. Edge. Status: Acute
[2018-08-30] MEDS: Cadexomer Iodine 0.9% 40 APPLIC/40 G TUBE TOP SCH (15:00)
[2018-08-31 06:15] LABS: BLOOD UREA NITROGEN 14 mg/dl (9-20); CALCIUM 8.8 mg/dL (8.4-10.2); GFR NON-AFRICAN AMERICAN > 60
[2018-08-31] MEDS: Multivitamin Vitamin B Complex (Nephro-Vite) Tab PEG SCH (09:52)
[2018-08-31] MEDS: Cadexomer Iodine 0.9% 40 APPLIC/40 G TUBE TOP SCH (09:52)
[2018-08-31] MEDS: Bacitracin OINT 15GM TOP SCH (09:52)
[2018-08-31] MEDS: levETIRAcetam 100 mg/ml (5ml) Oral Syringe PEG SCH ×2 (09:52→21:38)
--- NOTE | 2018-08-31 10:54 | CP.PCM.PN ---
Subjective - Date & Time of Evaluation Date of Evaluation: 08/31/18 Time of Evaluation: 10:54 - Subjective Subjective: Neurology Consult Follow-Up Note: Mr. Gates was evaluated this morning in bed during PT session. He is POD #6 of LIGHT EQUIPMENT OPERATOR shunt placement at [facility]. The pt remains somnolent and nonverbal today. Per phy ther pt is not as verbal as he was prior to the LIGHT EQUIPMENT OPERATOR shunt placement. Pt unable to follow commands today, however, he does open eyes when spoken to or asked to. Pt now has bacteremia; ID consulted. No acute overnight events; chart reviewed. Objective - Vital Signs/Intake and Output Vital Signs (last 24 hours): Temp Pulse Resp BP Pulse Ox 98.3 F 108 H 20 103/65 100 08/31/18 08:25 08/31/18 08:25 08/31/18 08:25 08/31/18 08:25 08/31/18 08:25 Intake and Output: 08/31/18 08/31/18 06:59 18:59 Intake Total 1211 Output Total 700 Balance 511 - Medications Medications: Current Medications Ascorbic Acid (Vitamin C 500 Mg Tab) 500 mg PEG DAILY [facility] Bacitracin (Bacitracin Oint) 1 applic TOP DAILY [facility] Last Admin: 08/31/18 09:52 Dose: 1 applic Cadexomer Iodine (Iodosorb) 1 applic TOP DAILY [facility] Last Admin: 08/31/18 09:52 Dose: 1 applic Dantrolene Sodium (Dantrium) 50 mg PO Q8 [facility] Last Admin: 08/30/18 00:53 Dose: 50 mg Ceftriaxone Sodium 1 gm/ (Sodium Chloride) 100 mls @ 100 mls/hr IVPB DAILY [facility]; Protocol Last Admin: 08/31/18 09:54 Dose: 100 mls/hr Vancomycin HCl 1 gm/ Sodium (Chloride) 250 mls @ 166.667 mls/hr IVPB DAILY [facility]; Protocol Levetiracetam (Keppra) 500 mg PEG Q12H [facility] Last Admin: 08/31/18 09:52 Dose: 500 mg Vitamin B Complex/Vit C/Folic Acid (Nephro-Radha) 1 tab PEG DAILY [facility] Last Admin: 08/31/18 09:52 Dose: 1 tab Zinc Sulfate (Zinc Sulfate 220 Mg Cap) 220 mg PEG DAILY [facility] - Labs Labs: 08/30/18 04:50 08/31/18 05:10 - Constitutional Appears: Non-toxic, No Acute Distress - Head Exam Head Exam: NORMOCEPHALIC Additional comments: surgical site noted with dressing - Eye Exam Eye Exam: Normal appearance Pupil Exam: NORMAL ACCOMODATION, PERRL - ENT Exam ENT Exam: Mucous Membranes Moist - Neck Exam Neck Exam: Normal Inspection - Respiratory Exam Respiratory Exam: NORMAL BREATHING PATTERN - GI/Abdominal Exam Additional comments: peg - Extremities Exam Extremities Exam: absent: Calf Tenderness, Full ROM, Pedal Edema Additional comments: contracted extremities with generalized weakness - Neurological Exam Neurological Exam: Altered Additional comments: -pt is somnolent, arousable and opens eyes. -does not following commands today -reflexes brisk b/l -generalized weakness noted to ble and bue - Psychiatric Exam Additional comments: somnolent; not following commands - Skin Skin Exam: Normal Color Assessment and Plan (1) Hydrocephalus Assessment & Plan: -Mr. Gates is POD #6 of LIGHT EQUIPMENT OPERATOR shunt placement -Further management post-op per neurosurgery recommendations. -Monitor infectious process--treatment and management of bacteremia per ID and primary team. Status: Acute (2) Traumatic brain injury Assessment & Plan: -TBI is stable;continue current medications. -Continue supportive measures. Status: Acute (3) Seizure Assessment & Plan: -Currently on Keppra 500 mg q12. -Na today is 130 (was 131 on 08/29/18 and 129 on 08/30/18). Continue to monitor hyponatremia. If it persists, neuro team may consider d/c Keppra and starting new AED. We will continue to follow up with the pt while in the hospital. Case discussed with Dr. Edge. Status: Acute
[2018-08-31 12:19] LABS: HEMOGLOBIN 11.2 g/dL (12.0-18.0); MEAN CELL VOLUME 91.4 fl (80.0-94.0); MEAN CORPUSCULAR HEMOGLOBIN 30.2 pg (27.0-31.0); RBC 3.7 Mil/uL (4.40-5.90); RED CELL DISTRIBUTION WIDTH 13.6 % (11.5-14.5); WHITE BLOOD COUNT 8.6 K/uL (4.8-10.8)
--- NOTE | 2018-08-31 13:16 | CP.PCM.CON ---
History of Present Illness - History of Present Illness History of Present Illness: 48-year-old man with a past medical history of traumatic brain injury, ICH s/p craniectomy, seizure disorder (on Keppra), hydrocephalus s/p LATEX FASHIONS DESIGNER shunt on 08/25/18. ID consulted for fever positive blood cultures source TBD May need LP/ LATEX FASHIONS DESIGNER Shunt sampling IV antibiotics ordered Review of Systems - Review of Systems Systems not reviewed;Unavailable: Acuity of Condition, Altered Mental Status All systems: reviewed and no additional remarkable complaints except - Constitutional Constitutional: As Per HPI, Fever - EENT Eyes: absent: As Per HPI, Blind Spots, Blurred Vision, Change in Vision, Decreased Night Vision, Diplopia, Discharge, Dry Eye, Exophthalmos, Floaters, Irritation, Itchy Eyes, Loss of Peripheral Vision, Pain, Photophobia, Requires Corrective Lenses, Sees Flashes, Spots in Vision, Tunnel Vision, Other Visual Disturbances, Loss of Vision, Other Ears: absent: As Per HPI, Decreased Hearing, Ear Discharge, Ear Pain, Tinnitus, Abnormal Hearing, Disequilibrium, Dizziness, Other Nose/Mouth/Throat: absent: As Per HPI, Epistaxis, Nasal Congestion, Nasal Discharge, Nasal Obstruction, Nasal Trauma, Nose Pain, Post Nasal Drip, Sinus Pain, Sinus Pressure, Bleeding Gums, Change in Voice, Dental Pain, Dry Mouth, Dysphagia, Halitosis, Hoarsness, Lip Swelling, Mouth Lesions, Mouth Pain, Odynophagia, Sore Throat, Throat Swelling, Tongue Swelling, Facial Pain, Neck Pain, Neck Mass, Other - Cardiovascular Cardiovascular: absent: As Per HPI, Acrocyanosis, Chest Pain, Chest Pain at Rest, Chest Pain with Activity, Claudication, Diaphoresis, Dyspnea, Dyspnea on Exertion, Edema, Irregular Heart Rhythm, Pain Radiating to Arm/Neck/Jaw, Leg Edema, Leg Ulcers, Lightheadedness, Orthopnea, Palpitations, Paroxysmal Nocturnal Dyspnea, Pedal Edema, Radiating Pain, Rapid Heart Rate, Slow Heart Rate, Syncope, Other - Respiratory Respiratory: absent: As Per HPI, Cough, Dyspnea, Hemoptysis, Dyspnea on Exertion, Wheezing, Snoring, Stridor, Pain on Inspiration, Chest Congestion, Excessive Mucous Production, Change in Mucous Color, Pain with Coughing, Other - Gastrointestinal Gastrointestinal: absent: As Per HPI, Abdominal Pain, Belching, Bloating, Change in Bowel Habits, Change in Stool Character, Coffee Ground Emesis, Constipation, Cramping, Diarrhea, Dyspepsia, Dysphagia, Early Satiety, Excessive Flatus, Fecal Incontinence, Heartburn, Hematemesis, Hematochezia, Loose Stools, Melena, Nausea, Odynophagia, Temesmus, Vomiting, Other - Genitourinary Genitourinary: absent: As Per HPI, Change in Urinary Stream, Difficulty Urinating, Dysuria, Flank Pain, Hematuria, Pyuria, Nocturia, Urinary Incontinence, Urinary Frequency, Urinary Hesitance, Urinary Urgency, Voiding Freq/Small Amts, Freq UTI, Hx Renal/Bladder Calculi, Hx /Renal Surgery, Bl adder Distension, Other - Musculoskeletal Musculoskeletal: absent: As Per HPI, Abnormal Gait, Arthralgias, Atrophy, Back Pain, Deformity, Joint Swelling, Limited Range of Motion, Loss of Height, Muscle Cramps, Muscle Weakness, Myalgias, Neck Pain, Numbness, Radiating Pain into Limb, Stiffness, Tingling, Other - Integumentary Integumentary: As Per HPI - Neurological Neurological: As Per HPI - Psychiatric Psychiatric: absent: As Per HPI, Abnormal Sleep Pattern, Anhedonia, Anxiety, Auditory Hallucinations, Behavioral Changes, Change in Appetite, Change in Libido, Confusion, Depression, Difficulty Concentrating, Hallucinations, Homicidal Ideation, Hopelessness, Irritability, Memory Loss, Mood Swings, Panic Attacks, Paranoia, Suicidal Ideation, Visual Hallucinations, Tactile Hallucinations, Other Past Patient History - Past Medical History & Family History Past Medical History?: Yes - Past Social History Smoking Status: Never Smoked - CARDIAC Hx Cardiac Disorders: No - PULMONARY Hx Respiratory Disorders: No - NEUROLOGICAL Hx Neurological Disorder: No - HEENT Hx HEENT Problems: No - RENAL Hx Chronic Kidney Disease: No - ENDOCRINE/METABOLIC Hx Endocrine Disorders: No - HEMATOLOGICAL/ONCOLOGICAL Hx Blood Disorders: No Hx AIDS: No Hx Human Immunodeficiency Virus (HIV): No - INTEGUMENTARY Hx Dermatological Problems: No - MUSCULOSKELETAL/RHEUMATOLOGICAL Hx Musculoskeletal Disorders: No Hx Falls: No - GASTROINTESTINAL Hx Gastrointestinal Disorders: No Hx Bowel Surgery: Yes (peg tube) - GENITOURINARY/GYNECOLOGICAL Hx Genitourinary Disorders: Yes Hx Incontinence: Yes - PSYCHIATRIC Hx Psychophysiologic Disorder: No Hx Substance Use: No - SURGICAL HISTORY Hx Surgeries: Yes Other/Comment: craniotomyx2 - ANESTHESIA Hx Anesthesia: Yes Hx Anesthesia Reactions: No Hx Malignant Hyperthermia: No Has any member of the family had a problem w/ anesthesia?: No Meds Allergies/Adverse Reactions: Allergies Allergy/AdvReac Type Severity Reaction Status Date / Time No Known Allergies Allergy Verified 08/17/18 11:57 - Medications Medications: Current Medications Ascorbic Acid (Vitamin C 500 Mg Tab) 500 mg PEG DAILY [facility] Bacitracin (Bacitracin Oint) 1 applic TOP DAILY [facility] Last Admin: 08/31/18 09:52 Dose: 1 applic Cadexomer Iodine (Iodosorb) 1 applic TOP DAILY [facility]IN Last Admin: 08/31/18 09:52 Dose: 1 applic Dantrolene Sodium (Dantrium) 50 mg PO Q8 [facility] Last Admin: 08/30/18 00:53 Dose: 50 mg Ceftriaxone Sodium 1 gm/ (Sodium Chloride) 100 mls @ 100 mls/hr IVPB DAILY [facility]IN; Protocol Last Admin: 08/31/18 09:54 Dose: 100 mls/hr Vancomycin HCl 1 gm/ Sodium (Chloride) 250 mls @ 166.667 mls/hr IVPB DAILY [facility]; Protocol Levetiracetam (Keppra) 500 mg PEG Q12H [facility] Last Admin: 08/31/18 09:52 Dose: 500 mg Vitamin B Complex/Vit C/Folic Acid (Nephro-Radha) 1 tab PEG DAILY [facility]IN Last Admin: 08/31/18 09:52 Dose: 1 tab Zinc Sulfate (Zinc Sulfate 220 Mg Cap) 220 mg PEG DAILY [facility] Physical Exam - Constitutional Appears: Confused, Cachectic, Chronically Ill - Head Exam Additional comments: s/p craniotomy LATEX FASHIONS DESIGNER shunt - Eye Exam Eye Exam: EOMI, PERRL. absent: Scleral icterus - ENT Exam ENT Exam: Mucous Membranes Dry - Neck Exam Neck exam: Negative for: Lymphadenopathy - Respiratory Exam Respiratory Exam: Decreased Breath Sounds, Rhonchi - Cardiovascular Exam Cardiovascular Exam: REGULAR RHYTHM, +S1, +S2 - GI/Abdominal Exam GI & Abdominal Exam: Diminished Bowel Sounds, Soft. absent: Tenderness - Rectal Exam Rectal Exam: Deferred - Exam Exam: NORMAL INSPECTION - Extremities Exam Extremities exam: Positive for: pedal pulses present. Negative for: calf tenderness, pedal edema - Back Exam Back exam: absent: CVA tenderness (L), CVA tenderness (R) - Neurological Exam Neurological exam: Alert, Altered, CN II-XII Intact - Psychiatric Exam Psychiatric exam: Depressed Results - Vital Signs Recent Vital Signs: Last Vital Signs Temp 97.5 F L 08/31/18 11:49 Pulse 111 H 08/31/18 11:49 Resp 20 08/31/18 11:49 BP 98/57 L 08/31/18 11:49 Pulse Ox 98 08/31/18 11:49 - Labs Result Diagrams: 08/31/18 12:14 08/31/18 05:10 Labs: Laboratory Results - last 24 hr 08/31/18 08/31/18 05:10 12:14 WBC 8.6 RBC 3.70 L Hgb 11.2 L Hct 33.8 L MCV 91.4 D MCH 30.2 MCHC 33.0 RDW 13.6 Plt Count 420 H Sodium 130 L Potassium 4.1 Chloride 96 L Carbon Dioxide 25 Anion Gap 13 BUN 14 Creatinine 0.5 L Est GFR ( Amer) > 60 Est GFR (Non-Af Amer) > 60 Random Glucose 106 Calcium 8.8 Assessment & Plan (1) LATEX FASHIONS DESIGNER (ventriculoperitoneal) shunt status Status: Acute (2) Decubitus skin ulcer Status: Acute (3) UTI (urinary tract infection) Status: Acute (4) Bacteremia Status: Acute (5) Change in mental status Status: Acute (6) Hydrocephalus Status: Acute (7) Traumatic brain injury Status: Chronic (8) Seizure Status: Chronic - Assessment and Plan (Free Text) Assessment: start broad spectrum coverage for Health care associated pathogens await final cultures if fever persists may need to sample CSF
--- NOTE | 2018-08-31 13:59 | CP.PCM.PN ---
<EmilianojelenacassandraShama - Last Filed: 08/31/18 14:06> Subjective - Date & Time of Evaluation Date of Evaluation: 08/31/18 Time of Evaluation: 13:30 - Subjective Subjective: Pt seen at bedside today, POD #6 of JOURNAL ENTRY AUDIT CLERK shunt placement at [facility]. His eyes are open and he is awake; he is able to nod, but does not speak back to rewriter. Found to have bacteremia - positive blood cultures. ID consulted - Dr. Carrion, recommended antibiotics meropenem, vancomycin. Objective - Vital Signs/Intake and Output Vital Signs (last 24 hours): Temp Pulse Resp BP Pulse Ox 97.5 F L 111 H 20 98/57 L 98 08/31/18 11:49 08/31/18 11:49 08/31/18 11:49 08/31/18 11:49 08/31/18 11:49 Intake and Output: 08/31/18 08/31/18 06:59 18:59 Intake Total 1211 Output Total 700 Balance 511 - Medications Medications: Current Medications Ascorbic Acid (Vitamin C 500 Mg Tab) 500 mg PEG DAILY [facility] Bacitracin (Bacitracin Oint) 1 applic TOP DAILY [facility] Last Admin: 08/31/18 09:52 Dose: 1 applic Cadexomer Iodine (Iodosorb) 1 applic TOP DAILY [facility] Last Admin: 08/31/18 09:52 Dose: 1 applic Dantrolene Sodium (Dantrium) 50 mg PO Q8 [facility] Last Admin: 08/30/18 00:53 Dose: 50 mg Vancomycin HCl 1 gm/ Sodium (Chloride) 250 mls @ 166.667 mls/hr IVPB Q12H [facility]; Protocol Meropenem 1 gm/ Sodium (Chloride) 100 mls @ 100 mls/hr IVPB Q8 [facility]; Protocol Levetiracetam (Keppra) 500 mg PEG Q12H [facility] Last Admin: 08/31/18 09:52 Dose: 500 mg Vitamin B Complex/Vit C/Folic Acid (Nephro-Radha) 1 tab PEG DAILY [facility] Last Admin: 08/31/18 09:52 Dose: 1 tab Zinc Sulfate (Zinc Sulfate 220 Mg Cap) 220 mg PEG DAILY [facility]IN - Labs Labs: 08/31/18 12:14 08/31/18 05:10 - Constitutional Appears: No Acute Distress, Chronically Ill - Head Exam Head Exam: NORMOCEPHALIC - Eye Exam Eye Exam: Normal appearance - Respiratory Exam Respiratory Exam: NORMAL BREATHING PATTERN. absent: Wheezes, Respiratory Distress - Cardiovascular Exam Cardiovascular Exam: REGULAR RHYTHM - Extremities Exam Extremities Exam: absent: Calf Tenderness Additional comments: contracted extremities - Neurological Exam Neurological Exam: Awake Additional comments: opens eyes, able to nod Assessment and Plan (1) Bacteremia Status: Acute (2) Hydrocephalus Status: Acute (3) Traumatic brain injury Status: Chronic (4) Seizure Status: Chronic - Assessment and Plan (Free Text) Plan: - POD 6 after JOURNAL ENTRY AUDIT CLERK shunt placed at [facility] - Bacteremia - gram wilmer gelacio; ID consult, Dr. Carrion, recs appreciated; IV vancomycin and meropenem; monitor for fever or other manifestations of infection - Neuro consult - Dr. Edeg; may consider switching Keppra to different medication if hyponatremia persists. - Diet via peg - SCD, heel offloading, elevated head of bed <Parish Berrios - Last Filed: 09/07/18 22:01> Objective - Vital Signs/Intake and Output Vital Signs (last 24 hours): Temp Pulse Resp BP Pulse Ox 98.5 F 109 H 18 106/68 100 09/07/18 20:01 09/07/18 20:01 09/07/18 20:01 09/07/18 20:01 09/07/18 20:01 - Medications Medications: Current Medications Ascorbic Acid (Vitamin C 500 Mg Tab) 500 mg PEG DAILY [facility]IN Last Admin: 09/07/18 08:07 Dose: 500 mg Bacitracin (Bacitracin Oint) 1 applic TOP DAILY [facility] Last Admin: 09/07/18 08:07 Dose: 1 applic Cadexomer Iodine (Iodosorb) 1 applic TOP DAILY [facility] Last Admin: 09/07/18 08:08 Dose: 1 applic Dantrolene Sodium (Dantrium) 50 mg PO Q8 [facility] Last Admin: 08/30/18 00:53 Dose: 50 mg Cefepime HCl 1 gm/ Sodium (Chloride) 100 mls @ 100 mls/hr IVPB Q12 [facility]; Protocol Last Admin: 09/07/18 21:58 Dose: 100 mls/hr Vancomycin HCl 1 gm/ Sodium (Chloride) 250 mls @ 166.667 mls/hr IVPB Q24H [facility]; Protocol Last Admin: 12/26/18 13:08 Dose: 166.667 mls/hr Levetiracetam (Keppra) 500 mg PEG Q12H [facility]IN Last Admin: 09/07/18 21:59 Dose: 500 mg Vitamin B Complex/Vit C/Folic Acid (Nephro-Radha) 1 tab PEG DAILY [facility] Last Admin: 09/07/18 08:07 Dose: 1 tab Zinc Sulfate (Zinc Sulfate 220 Mg Cap) 220 mg PEG DAILY [facility] Last Admin: 09/07/18 08:07 Dose: 220 mg - Labs Labs: 09/06/18 05:13 09/06/18 05:13 Assessment and Plan (1) Hydrocephalus Status: Acute (2) Traumatic brain injury Status: Chronic (3) Change in mental status Status: Acute - Assessment and Plan (Free Text) Plan: I was present during evaluation and discussed with Dr Magana re plans of care and mgt. Parish Berrios M.D.
[2018-08-31] MEDS: Meropenem 1 GM in Sodium Chloride 0.9% 100 ML IVPB SCH (17:50)
[2018-09-01] MEDS: Meropenem 1 GM in Sodium Chloride 0.9% 100 ML IVPB SCH ×3 (00:44→18:31)
[2018-09-01 06:40] LABS: BASO # 0.1 K/uL (0.0-0.2); BASO % 0.7 % (0.0-2.0); EOS # 0.1 K/uL (0.0-0.7); EOS % 1.3 % (0.0-4.0); HEMOGLOBIN 10.7 g/dL (12.0-18.0); LYMPH % 24.3 % (20.0-40.0); MEAN CELL VOLUME 89.4 fl (80.0-94.0); MEAN CORPUSCULAR HEMOGLOBIN 30.7 pg (27.0-31.0); MEAN CORPUSCULAR HGB CONC 34.3 g/dL (33.0-37.0); MEAN PLATELET VOLUME 7.4 fl (7.2-11.7); MONO # 0.6 K/uL (0.0-0.8); MONO % 7.5 % (0.0-10.0); NEUT # 5.5 K/uL (1.8-7.0); NEUT % 66.2 % (50.0-75.0); RBC 3.48 Mil/uL (4.40-5.90); RED CELL DISTRIBUTION WIDTH 13.7 % (11.5-14.5); WHITE BLOOD COUNT 8.3 K/uL (4.8-10.8)
[2018-09-01 07:04] LABS: BLOOD UREA NITROGEN 11 mg/dl (9-20); CALCIUM 8.8 mg/dL (8.4-10.2); GFR NON-AFRICAN AMERICAN > 60
--- NOTE | 2018-09-01 10:52 | CP.PCM.PN ---
Subjective - Date & Time of Evaluation Date of Evaluation: 09/01/18 Time of Evaluation: 10:51 - Subjective Subjective: Neurology Follow-Up Note: Mr. Gates was evaluated this morning in bed. He is POD #7 of [employer] shunt placement at [facility]. The pt remains somnolent and nonverbal today. Pt unable to follow commands today, however, he does open eyes. ROS unobtainable 2/2 pt nonverbal. No acute overnight events; chart reviewed. Objective - Vital Signs/Intake and Output Vital Signs (last 24 hours): Temp Pulse Resp BP Pulse Ox 98.1 F 99 H 20 111/69 98 09/01/18 07:50 09/01/18 07:50 09/01/18 07:50 09/01/18 07:50 09/01/18 07:50 Intake and Output: 09/01/18 09/01/18 06:59 18:59 Intake Total 1300 Output Total 800 Balance 500 - Medications Medications: Current Medications Ascorbic Acid (Vitamin C 500 Mg Tab) 500 mg PEG DAILY [facility] Last Admin: 08/31/18 14:30 Dose: 500 mg Bacitracin (Bacitracin Oint) 1 applic TOP DAILY [facility] Last Admin: 08/31/18 09:52 Dose: 1 applic Cadexomer Iodine (Iodosorb) 1 applic TOP DAILY [facility] Last Admin: 08/31/18 09:52 Dose: 1 applic Dantrolene Sodium (Dantrium) 50 mg PO Q8 [facility] Last Admin: 08/30/18 00:53 Dose: 50 mg Vancomycin HCl 1 gm/ Sodium (Chloride) 250 mls @ 166.667 mls/hr IVPB Q12H [facility]; Protocol Last Admin: 09/01/18 03:03 Dose: 166.667 mls/hr Meropenem 1 gm/ Sodium (Chloride) 100 mls @ 100 mls/hr IVPB Q8 [facility]; Protocol Last Admin: 09/01/18 00:44 Dose: 100 mls/hr Levetiracetam (Keppra) 500 mg PEG Q12H [facility] Last Admin: 08/31/18 21:38 Dose: 500 mg Vitamin B Complex/Vit C/Folic Acid (Nephro-Radha) 1 tab PEG DAILY [facility] Last Admin: 08/31/18 09:52 Dose: 1 tab Zinc Sulfate (Zinc Sulfate 220 Mg Cap) 220 mg PEG DAILY [facility] Last Admin: 08/31/18 14:31 Dose: 220 mg - Labs Labs: 09/01/18 05:30 09/01/18 05:30 - Constitutional Appears: Non-toxic, No Acute Distress - Head Exam Head Exam: NORMOCEPHALIC Additional comments: surgical site noted, emery in place, dressing intact - Eye Exam Eye Exam: EOMI, Normal appearance Pupil Exam: NORMAL ACCOMODATION - ENT Exam ENT Exam: Mucous Membranes Moist - Neck Exam Neck Exam: Normal Inspection - Respiratory Exam Respiratory Exam: NORMAL BREATHING PATTERN - GI/Abdominal Exam Additional comments: peg - Extremities Exam Extremities Exam: absent: Calf Tenderness, Full ROM, Pedal Edema Additional comments: contracted extremities with weakness throughout - Neurological Exam Neurological Exam: Abnormal Gait. absent: Oriented x3 Additional comments: -pt is somnolent, arousable and opens eyes. -not following commands today -reflexes brisk b/l -generalized weakness noted to ble and bue - Psychiatric Exam Additional comments: nonverbal; somnolent; does not appear to be in distress - Skin Skin Exam: Normal Color Assessment and Plan (1) Hydrocephalus Assessment & Plan: -Mr. Gates is POD #7 of [employer] shunt placement -Further management post-op per neurosurgery recommendations. -Monitor infectious process--treatment and management of bacteremia per ID and primary team. Status: Acute (2) Traumatic brain injury Assessment & Plan: -TBI is stable;continue current medications. -Continue supportive measures. Status: Chronic (3) Seizure Assessment & Plan: -Currently on Keppra 500 mg q12. -Na today is 132. Continue to monitor for hyponatremia. If it persists, neuro team may consider d/c Keppra and starting new AED. We will continue to follow up with the pt while in the hospital. Case discussed with Dr. Edge. Status: Chronic
[2018-09-01] MEDS: Bacitracin OINT 15GM TOP SCH (10:53)
[2018-09-01] MEDS: Cadexomer Iodine 0.9% 40 APPLIC/40 G TUBE TOP SCH (10:57)
[2018-09-01] MEDS: levETIRAcetam 100 mg/ml (5ml) Oral Syringe PEG SCH ×2 (10:58→21:20)
[2018-09-01] MEDS: Multivitamin Vitamin B Complex (Nephro-Vite) Tab PEG SCH (10:59)
--- NOTE | 2018-09-01 19:11 | CP.PCM.PN ---
Subjective - Date & Time of Evaluation Date of Evaluation: 09/01/18 Time of Evaluation: 09:00 - Subjective Subjective: blood cultures + for coag neg staph source unclear urine c/s noted if no omprovement would need CSF sample Objective - Vital Signs/Intake and Output Vital Signs (last 24 hours): Temp Pulse Resp BP Pulse Ox 97.4 F L 102 H 18 104/64 97 09/01/18 15:53 09/01/18 15:53 09/01/18 15:53 09/01/18 15:53 09/01/18 15:53 Intake and Output: 09/01/18 09/02/18 18:59 06:59 Intake Total 1061 Output Total 450 Balance 611 - Medications Medications: Current Medications Ascorbic Acid (Vitamin C 500 Mg Tab) 500 mg PEG DAILY [facility]IN Last Admin: 09/01/18 10:59 Dose: 500 mg Bacitracin (Bacitracin Oint) 1 applic TOP DAILY [facility] Last Admin: 09/01/18 10:53 Dose: 1 applic Cadexomer Iodine (Iodosorb) 1 applic TOP DAILY [facility]IN Last Admin: 09/01/18 10:57 Dose: 1 applic Dantrolene Sodium (Dantrium) 50 mg PO Q8 [facility]IN Last Admin: 08/30/18 00:53 Dose: 50 mg Vancomycin HCl 1 gm/ Sodium (Chloride) 250 mls @ 166.667 mls/hr IVPB Q12H [facility]IN; Protocol Last Admin: 09/01/18 15:09 Dose: 166.667 mls/hr Meropenem 1 gm/ Sodium (Chloride) 100 mls @ 100 mls/hr IVPB Q8 [facility]IN; Protocol Last Admin: 09/01/18 18:31 Dose: 100 mls/hr Levetiracetam (Keppra) 500 mg PEG Q12H [facility]IN Last Admin: 09/01/18 10:58 Dose: 500 mg Vitamin B Complex/Vit C/Folic Acid (Nephro-Radha) 1 tab PEG DAILY [facility] Last Admin: 09/01/18 10:59 Dose: 1 tab Zinc Sulfate (Zinc Sulfate 220 Mg Cap) 220 mg PEG DAILY [facility]IN Last Admin: 09/01/18 10:59 Dose: 220 mg - Labs Labs: 09/01/18 05:30 09/01/18 05:30 - Constitutional Appears: Confused, Cachectic, Chronically Ill - Head Exam Head Exam: NORMOCEPHALIC - Eye Exam Eye Exam: absent: Scleral icterus - ENT Exam ENT Exam: Normal External Ear Exam - Neck Exam Neck Exam: absent: Lymphadenopathy - Respiratory Exam Respiratory Exam: Decreased Breath Sounds - Cardiovascular Exam Cardiovascular Exam: REGULAR RHYTHM - GI/Abdominal Exam GI & Abdominal Exam: Distended, Soft - Rectal Exam Rectal Exam: Deferred - Exam Exam: NORMAL INSPECTION - Extremities Exam Extremities Exam: absent: Pedal Edema - Back Exam Back Exam: absent: CVA tenderness (L), CVA tenderness (R) Assessment and Plan (1) MARKETING SERVICES VICE PRESIDENT (ventriculoperitoneal) shunt status Status: Acute (2) Decubitus skin ulcer Status: Acute (3) UTI (urinary tract infection) Status: Acute (4) Bacteremia Status: Acute (5) Change in mental status Status: Acute (6) Hydrocephalus Status: Acute (7) Traumatic brain injury Status: Chronic (8) Seizure Status: Chronic - Assessment and Plan (Free Text) Assessment: blood cultures + for coag neg staph source unclear urine c/s noted if no omprovement would need CSF sample
[2018-09-02] MEDS: Meropenem 1 GM in Sodium Chloride 0.9% 100 ML IVPB SCH ×2 (00:15→09:08)
[2018-09-02 06:08] LABS: HEMOGLOBIN 10.5 g/dL (12.0-18.0); MEAN CELL VOLUME 89.3 fl (80.0-94.0); MEAN CORPUSCULAR HEMOGLOBIN 29.8 pg (27.0-31.0); MEAN CORPUSCULAR HGB CONC 33.3 g/dL (33.0-37.0); RBC 3.52 Mil/uL (4.40-5.90); RED CELL DISTRIBUTION WIDTH 13.6 % (11.5-14.5); WHITE BLOOD COUNT 7.5 K/uL (4.8-10.8)
[2018-09-02 06:37] LABS: ALBUMIN 3.1 g/dL (3.5-5.0); ALT/SGPT 65 U/L (21-72); AST/SGOT 56 U/L (17-59); BLOOD UREA NITROGEN 11 mg/dl (9-20); CALCIUM 8.9 mg/dL (8.4-10.2); GFR NON-AFRICAN AMERICAN > 60
[2018-09-02] MEDS: Bacitracin OINT 15GM TOP SCH (09:06)
[2018-09-02] MEDS: Cadexomer Iodine 0.9% 40 APPLIC/40 G TUBE TOP SCH (09:07)
[2018-09-02] MEDS: levETIRAcetam 100 mg/ml (5ml) Oral Syringe PEG SCH ×2 (09:07→21:40)
[2018-09-02] MEDS: Multivitamin Vitamin B Complex (Nephro-Vite) Tab PEG SCH (09:08)
--- NOTE | 2018-09-02 10:39 | CP.PCM.PN ---
Subjective - Date & Time of Evaluation Date of Evaluation: 09/02/18 Time of Evaluation: 10:38 - Subjective Subjective: Neurology Follow-Up Note: Mr. Gates was evaluated this morning in bed. He is POD #8 of CANVASSING MANAGER shunt placement at [facility]. The pt is awake and alert but remains nonverbal. Pt unable to follow commands, though he opens eyes when asked to. ROS unobtainable 2/2 pt nonverbal. No acute overnight events; chart reviewed. Objective - Vital Signs/Intake and Output Vital Signs (last 24 hours): Temp Pulse Resp BP Pulse Ox 98.9 F 96 H 18 105/69 100 09/02/18 08:06 09/02/18 08:06 09/02/18 08:06 09/02/18 08:06 09/02/18 08:06 - Medications Medications: Current Medications Ascorbic Acid (Vitamin C 500 Mg Tab) 500 mg PEG DAILY [facility] Last Admin: 09/02/18 09:09 Dose: 500 mg Bacitracin (Bacitracin Oint) 1 applic TOP DAILY [facility] Last Admin: 09/02/18 09:06 Dose: 1 applic Cadexomer Iodine (Iodosorb) 1 applic TOP DAILY [facility] Last Admin: 09/02/18 09:07 Dose: 1 applic Dantrolene Sodium (Dantrium) 50 mg PO Q8 [facility] Last Admin: 08/30/18 00:53 Dose: 50 mg Vancomycin HCl 1 gm/ Sodium (Chloride) 250 mls @ 166.667 mls/hr IVPB Q12H [facility]; Protocol Last Admin: 09/02/18 02:50 Dose: 166.667 mls/hr Meropenem 1 gm/ Sodium (Chloride) 100 mls @ 100 mls/hr IVPB Q8 [facility]; Protocol Last Admin: 09/02/18 09:08 Dose: 100 mls/hr Levetiracetam (Keppra) 500 mg PEG Q12H [facility] Last Admin: 09/02/18 09:07 Dose: 500 mg Vitamin B Complex/Vit C/Folic Acid (Nephro-Radha) 1 tab PEG DAILY [facility] Last Admin: 09/02/18 09:08 Dose: 1 tab Zinc Sulfate (Zinc Sulfate 220 Mg Cap) 220 mg PEG DAILY [facility] Last Admin: 09/02/18 09:09 Dose: 220 mg - Labs Labs: 09/02/18 04:05 09/02/18 04:05 - Constitutional Appears: Non-toxic, No Acute Distress - Head Exam Head Exam: NORMOCEPHALIC Additional comments: surgical site noted, emery in place; dressing intact - Eye Exam Eye Exam: EOMI, Normal appearance Pupil Exam: NORMAL ACCOMODATION - ENT Exam ENT Exam: Mucous Membranes Moist - Neck Exam Neck Exam: Normal Inspection - Respiratory Exam Respiratory Exam: NORMAL BREATHING PATTERN - GI/Abdominal Exam Additional comments: peg - Extremities Exam Extremities Exam: absent: Calf Tenderness, Full ROM, Pedal Edema Additional comments: contracted extremities weakness to all extremities - Neurological Exam Neurological Exam: Abnormal Gait. absent: Oriented x3 Additional comments: -pt is awake and more alert today; opens eyes when spoken to and asked to. -not following commands today -reflexes brisk b/l -generalized weakness noted to ble and bue - Psychiatric Exam Additional comments: nonverbal awake, alert, calm - Skin Skin Exam: Normal Color Assessment and Plan (1) Hydrocephalus Assessment & Plan: -Mr. Gates is POD #8 of CANVASSING MANAGER shunt placement -Further management post-op per neurosurgery recommendations. -Monitor infectious process--treatment and management of bacteremia per ID and primary team. ID request for CSF if pt's bacteremia does not improve resolve discussed with Dr. Edge. At this time, repeat blood cx are negative x48 hours, pt is afebrile, and has no leukocytosis. Status: Acute (2) Traumatic brain injury Assessment & Plan: -TBI is stable;continue current medications. -Continue supportive measures. Status: Chronic (3) Seizure Assessment & Plan: -Currently on Keppra 500 mg q12. -Na today is 135. Continue to monitor for hyponatremia. If hyponatremia returns, neuro team may consider d/c Keppra and starting new AED. We will sign off at this time. Please reconsult prn. Notify us of any acute changes in pt's condition. Case discussed with Dr. Edge. Status: Chronic
--- NOTE | 2018-09-02 18:05 | CP.PCM.PN ---
Subjective - Date & Time of Evaluation Date of Evaluation: 09/02/18 Time of Evaluation: 08:00 - Subjective Subjective: afeb 2/2 sets blood c/s + coag neg staph source unclear at this time / repeat cultures negative cont iv rx min 14 days consider CSF sampling Objective - Vital Signs/Intake and Output Vital Signs (last 24 hours): Temp Pulse Resp BP Pulse Ox 97.7 F 88 18 94/66 L 98 09/02/18 15:49 09/02/18 15:49 09/02/18 15:49 09/02/18 15:49 09/02/18 15:49 - Medications Medications: Current Medications Ascorbic Acid (Vitamin C 500 Mg Tab) 500 mg PEG DAILY [facility] Last Admin: 09/02/18 09:09 Dose: 500 mg Bacitracin (Bacitracin Oint) 1 applic TOP DAILY [facility] Last Admin: 09/02/18 09:06 Dose: 1 applic Cadexomer Iodine (Iodosorb) 1 applic TOP DAILY [facility] Last Admin: 09/02/18 09:07 Dose: 1 applic Dantrolene Sodium (Dantrium) 50 mg PO Q8 [facility] Last Admin: 08/30/18 00:53 Dose: 50 mg Vancomycin HCl 1 gm/ Sodium (Chloride) 250 mls @ 166.667 mls/hr IVPB Q12H [facility]; Protocol Last Admin: 09/02/18 14:41 Dose: 166.667 mls/hr Cefepime HCl 1 gm/ Sodium (Chloride) 100 mls @ 100 mls/hr IVPB Q12 [facility]; Protocol Levetiracetam (Keppra) 500 mg PEG Q12H [facility] Last Admin: 09/02/18 09:07 Dose: 500 mg Vitamin B Complex/Vit C/Folic Acid (Nephro-Radha) 1 tab PEG DAILY [facility] Last Admin: 09/02/18 09:08 Dose: 1 tab Zinc Sulfate (Zinc Sulfate 220 Mg Cap) 220 mg PEG DAILY [facility] Last Admin: 09/02/18 09:09 Dose: 220 mg - Labs Labs: 09/02/18 04:05 09/02/18 04:05 Assessment and Plan (1) INSPECTOR ALUMINUM BOAT (ventriculoperitoneal) shunt status Status: Acute (2) Decubitus skin ulcer Status: Acute (3) UTI (urinary tract infection) Status: Acute (4) Bacteremia Status: Acute (5) Change in mental status Status: Acute (6) Hydrocephalus Status: Acute (7) Traumatic brain injury Status: Chronic (8) Seizure Status: Chronic
[2018-09-02] MEDS: Cefepime 1 GM in Sodium Chloride 0.9% 100 ML IVPB SCH (21:40)
[2018-09-03 06:48] LABS: HEMOGLOBIN 11.2 g/dL (12.0-18.0); MEAN CELL VOLUME 89.4 fl (80.0-94.0); MEAN CORPUSCULAR HGB CONC 33.6 g/dL (33.0-37.0); RBC 3.75 Mil/uL (4.40-5.90); RED CELL DISTRIBUTION WIDTH 13.7 % (11.5-14.5); WHITE BLOOD COUNT 7.3 K/uL (4.8-10.8)
[2018-09-03 07:11] LABS: ALBUMIN 3.3 g/dL (3.5-5.0); ALT/SGPT 74 U/L (21-72); AST/SGOT 53 U/L (17-59); BLOOD UREA NITROGEN 9 mg/dl (9-20); CALCIUM 9.2 mg/dL (8.4-10.2); GFR NON-AFRICAN AMERICAN > 60
--- NOTE | 2018-09-03 08:48 | PN ---
DATE: 09/03/2018 SUBJECTIVE: The patient seen and examined. Interim events noted. The patient remains in progressive care unit. The patient is not able to provide any informative history or review of system. No specific issue reported by nursing staff. PHYSICAL EXAMINATION: GENERAL: The patient is in no acute distress. VITAL SIGNS: Stable. HEART EXAM: S1, S2, normal and regular. LUNGS: Good bilateral air exchange. ABDOMEN: Nontender. EXTREMITIES: No edema. No calf swelling. No tenderness. No acute ischemia. CENTRAL NERVOUS EXAM: Essentially unchanged. DIAGNOSTIC DATA: Available diagnostic data reviewed. Telemetry monitoring does not show significant arrhythmia. ASSESSMENT AND PLAN: Overall, the patient's general medical condition is stable. Fuad Bueno MD
[2018-09-03] MEDS: Cadexomer Iodine 0.9% 40 APPLIC/40 G TUBE TOP SCH (10:25)
[2018-09-03] MEDS: levETIRAcetam 100 mg/ml (5ml) Oral Syringe PEG SCH ×2 (10:25→20:59)
[2018-09-03] MEDS: Cefepime 1 GM in Sodium Chloride 0.9% 100 ML IVPB SCH ×2 (10:25→20:56)
[2018-09-03] MEDS: Multivitamin Vitamin B Complex (Nephro-Vite) Tab PEG SCH (10:26)
[2018-09-03] MEDS: Bacitracin OINT 15GM TOP SCH (10:26)
[2018-09-04 05:38] LABS: MEAN CORPUSCULAR HEMOGLOBIN 29.8 pg (27.0-31.0); MEAN CORPUSCULAR HGB CONC 33.1 g/dL (33.0-37.0); RBC 3.68 Mil/uL (4.40-5.90); RED CELL DISTRIBUTION WIDTH 13.8 % (11.5-14.5); WHITE BLOOD COUNT 7.8 K/uL (4.8-10.8)
[2018-09-04 05:51] LABS: ALBUMIN 3.3 g/dL (3.5-5.0); ALT/SGPT 80 U/L (21-72); AST/SGOT 59 U/L (17-59); BLOOD UREA NITROGEN 8 mg/dl (9-20); CALCIUM 9.2 mg/dL (8.4-10.2); GFR NON-AFRICAN AMERICAN > 60
[2018-09-04] MEDS: Cefepime 1 GM in Sodium Chloride 0.9% 100 ML IVPB SCH ×2 (08:22→21:20)
[2018-09-04] MEDS: Cadexomer Iodine 0.9% 40 APPLIC/40 G TUBE TOP SCH (08:23)
[2018-09-04] MEDS: Bacitracin OINT 15GM TOP SCH (08:24)
[2018-09-04] MEDS: Multivitamin Vitamin B Complex (Nephro-Vite) Tab PEG SCH (08:24)
[2018-09-04] MEDS: levETIRAcetam 100 mg/ml (5ml) Oral Syringe PEG SCH ×2 (08:24→21:20)
--- NOTE | 2018-09-04 12:43 | CP.PCM.PN ---
Subjective - Date & Time of Evaluation Date of Evaluation: 09/04/18 Time of Evaluation: 08:00 - Subjective Subjective: remains comatose not following commands open eyes Objective - Vital Signs/Intake and Output Vital Signs (last 24 hours): Temp Pulse Resp BP Pulse Ox 98.1 F 99 H 20 101/68 93 L 09/04/18 08:00 09/04/18 08:00 09/04/18 08:00 09/04/18 08:00 09/04/18 08:00 - Medications Medications: Current Medications Ascorbic Acid (Vitamin C 500 Mg Tab) 500 mg PEG DAILY [facility] Last Admin: 09/04/18 08:24 Dose: 500 mg Bacitracin (Bacitracin Oint) 1 applic TOP DAILY [facility] Last Admin: 09/04/18 08:24 Dose: 1 applic Cadexomer Iodine (Iodosorb) 1 applic TOP DAILY [facility] Last Admin: 09/04/18 08:23 Dose: 1 applic Dantrolene Sodium (Dantrium) 50 mg PO Q8 [facility] Last Admin: 08/30/18 00:53 Dose: 50 mg Cefepime HCl 1 gm/ Sodium (Chloride) 100 mls @ 100 mls/hr IVPB Q12 [facility]; Protocol Last Admin: 09/04/18 08:22 Dose: 100 mls/hr Levetiracetam (Keppra) 500 mg PEG Q12H [facility] Last Admin: 09/04/18 08:24 Dose: 500 mg Vitamin B Complex/Vit C/Folic Acid (Nephro-Radha) 1 tab PEG DAILY [facility] Last Admin: 09/04/18 08:24 Dose: 1 tab Zinc Sulfate (Zinc Sulfate 220 Mg Cap) 220 mg PEG DAILY [facility] Last Admin: 09/04/18 08:24 Dose: 220 mg - Labs Labs: 09/04/18 04:38 09/04/18 04:38 - Constitutional Appears: Confused, Chronically Ill - Head Exam Head Exam: absent: ATRAUMATIC, NORMAL INSPECTION, NORMOCEPHALIC - Eye Exam Eye Exam: absent: Scleral icterus - ENT Exam ENT Exam: Mucous Membranes Dry - Neck Exam Neck Exam: absent: Lymphadenopathy - Respiratory Exam Respiratory Exam: Decreased Breath Sounds - Cardiovascular Exam Cardiovascular Exam: REGULAR RHYTHM - GI/Abdominal Exam GI & Abdominal Exam: Distended, Soft Additional comments: GT + - Exam Exam: NORMAL INSPECTION - Extremities Exam Extremities Exam: absent: Pedal Edema - Back Exam Back Exam: absent: CVA tenderness (L), CVA tenderness (R) - Neurological Exam Neurological Exam: Altered - Skin Skin Exam: Dry Assessment and Plan (1) 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 FARM WORKER (ventriculoperitoneal) shunt status Status: Acute (2) Decubitus skin ulcer Status: Acute (3) UTI (urinary tract infection) Status: Acute (4) Bacteremia Status: Acute (5) Change in mental status Status: Acute (6) Hydrocephalus Status: Acute (7) Traumatic brain injury Status: Chronic (8) Seizure Status: Chronic - Assessment and Plan (Free Text) Assessment: 48-year-old man with a past medical history of traumatic brain injury, ICH s/p craniectomy, seizure disorder (on Keppra), hydrocephalus s/p LAVENDER FARM WORKER shunt on 08/25 initial blood cultures were positive for coag neg staph 2/2 sets urine grew pseudomonas unclear as to source of fever now afeb on IV antibiotics would consider CSF analysis to exclude HEAD REFRIGERATING ENGINEER/ Shunt as source and help define duration of rx for Vanco
--- NOTE | 2018-09-04 12:51 | CP.PCM.PCO ---
Physician Communication Note - Physician Communication Note Physician Communication Note: would consider CSF analysis to exclude GREENSKEEPER SUPERVISOR/ Shunt as source
--- NOTE | 2018-09-05 07:57 | PN ---
DATE: 09/01/2018 SUBJECTIVE: The patient seen and examined. Interim events noted. The patient seen by Dr. Berrios. Chart reviewed. The patient remains in progressive care unit and telemetry monitoring. Awake, but not conversant. Denies any specific pain. PHYSICAL EXAMINATION: GENERAL: The patient is in no acute distress. VITAL SIGNS: Stable. HEART: S1, S2 normal and regular. LUNGS: Good bilateral air exchange. ABDOMEN: Soft and nontender. EXTREMITIES: No edema. No calf swelling. No tenderness. No acute ischemia. CENTRAL NERVOUS EXAM: Essentially unchanged. DIAGNOSTIC DATA: Available diagnostic data reviewed. Telemetry monitory does not significant arrhythmia. ASSESSMENT AND PLAN: Overall, the patient's general medical condition is stable. Plan as ordered. Fuad Bueno MD
[2018-09-05] MEDS: levETIRAcetam 100 mg/ml (5ml) Oral Syringe PEG SCH ×2 (08:00→21:35)
[2018-09-05] MEDS: Multivitamin Vitamin B Complex (Nephro-Vite) Tab PEG SCH (08:00)
[2018-09-05] MEDS: Cadexomer Iodine 0.9% 40 APPLIC/40 G TUBE TOP SCH (08:00)
[2018-09-05] MEDS: Cefepime 1 GM in Sodium Chloride 0.9% 100 ML IVPB SCH ×2 (08:00→21:35)
[2018-09-05] MEDS: Bacitracin OINT 15GM TOP SCH (08:01)
[2018-09-06 05:31] LABS: BASO % 0.5 % (0.0-2.0); EOS # 0.1 K/uL (0.0-0.7); EOS % 1.5 % (0.0-4.0); HEMOGLOBIN 11.8 g/dL (12.0-18.0); LYMPH # 1.8 K/uL (1.0-4.3); LYMPH % 29.8 % (20.0-40.0); MEAN CELL VOLUME 89.6 fl (80.0-94.0); MEAN CORPUSCULAR HGB CONC 34.6 g/dL (33.0-37.0); MEAN PLATELET VOLUME 6.5 fl (7.2-11.7); MONO # 0.5 K/uL (0.0-0.8); NEUT # 3.6 K/uL (1.8-7.0); NEUT % 60.2 % (50.0-75.0); RBC 3.8 Mil/uL (4.40-5.90)
[2018-09-06 06:10] LABS: ALBUMIN 3.5 g/dL (3.5-5.0); ALT/SGPT 69 U/L (21-72); AST/SGOT 48 U/L (17-59); BLOOD UREA NITROGEN 13 mg/dl (9-20); CALCIUM 9.3 mg/dL (8.4-10.2); GFR NON-AFRICAN AMERICAN > 60
[2018-09-06] MEDS: Cefepime 1 GM in Sodium Chloride 0.9% 100 ML IVPB SCH ×2 (10:27→22:09)
[2018-09-06] MEDS: Bacitracin OINT 15GM TOP SCH (10:28)
[2018-09-06] MEDS: levETIRAcetam 100 mg/ml (5ml) Oral Syringe PEG SCH ×2 (10:28→21:15)
[2018-09-06] MEDS: Cadexomer Iodine 0.9% 40 APPLIC/40 G TUBE TOP SCH (10:28)
[2018-09-06] MEDS: Multivitamin Vitamin B Complex (Nephro-Vite) Tab PEG SCH (10:28)
[2018-09-07] MEDS: levETIRAcetam 100 mg/ml (5ml) Oral Syringe PEG SCH ×2 (08:07→21:59)
[2018-09-07] MEDS: Multivitamin Vitamin B Complex (Nephro-Vite) Tab PEG SCH (08:07)
[2018-09-07] MEDS: Bacitracin OINT 15GM TOP SCH (08:07)
[2018-09-07] MEDS: Cadexomer Iodine 0.9% 40 APPLIC/40 G TUBE TOP SCH (08:08)
[2018-09-07] MEDS: Cefepime 1 GM in Sodium Chloride 0.9% 100 ML IVPB SCH ×2 (08:08→21:58)
--- NOTE | 2018-09-07 09:35 | CP.PCM.PCO ---
Assessment/Plan - Assessment and Plan (Free Text) Assessment: Patient seen and examined VSS, no leukocytosis, Repeat blood cultures negative Discussed with Dr Carrion, plan to cont iv abx total of 14 days Patient medically cleared for dc to Acute Rehab-discussed with JUVENTINO.
--- NOTE | 2018-09-07 12:33 | CP.PCM.PN ---
Subjective - Date & Time of Evaluation Date of Evaluation: 09/07/18 Time of Evaluation: 08:00 - Subjective Subjective: obtunded afebrile opens eyes non verbal not following commands not moving limbs Objective - Vital Signs/Intake and Output Vital Signs (last 24 hours): Temp Pulse Resp BP Pulse Ox 97.3 F L 92 H 20 103/66 100 09/07/18 12:08 09/07/18 12:08 09/07/18 12:08 09/07/18 12:08 09/07/18 12:08 - Medications Medications: Current Medications Ascorbic Acid (Vitamin C 500 Mg Tab) 500 mg PEG DAILY [facility] Last Admin: 09/07/18 08:07 Dose: 500 mg Bacitracin (Bacitracin Oint) 1 applic TOP DAILY [facility] Last Admin: 09/07/18 08:07 Dose: 1 applic Cadexomer Iodine (Iodosorb) 1 applic TOP DAILY [facility] Last Admin: 09/07/18 08:08 Dose: 1 applic Dantrolene Sodium (Dantrium) 50 mg PO Q8 [facility] Last Admin: 08/30/18 00:53 Dose: 50 mg Cefepime HCl 1 gm/ Sodium (Chloride) 100 mls @ 100 mls/hr IVPB Q12 [facility]; Protocol Last Admin: 09/07/18 08:08 Dose: 100 mls/hr Vancomycin HCl 1 gm/ Sodium (Chloride) 250 mls @ 166.667 mls/hr IVPB Q24H [facility]; Protocol Last Admin: 09/06/18 17:03 Dose: 166.667 mls/hr Levetiracetam (Keppra) 500 mg PEG Q12H [facility] Last Admin: 09/07/18 08:07 Dose: 500 mg Vitamin B Complex/Vit C/Folic Acid (Nephro-Radha) 1 tab PEG DAILY [facility] Last Admin: 09/07/18 08:07 Dose: 1 tab Zinc Sulfate (Zinc Sulfate 220 Mg Cap) 220 mg PEG DAILY [facility] Last Admin: 09/07/18 08:07 Dose: 220 mg - Labs Labs: 09/06/18 05:13 09/06/18 05:13 - Constitutional Appears: No Acute Distress, Confused, Cachectic, Chronically Ill - Head Exam Head Exam: absent: ATRAUMATIC, NORMAL INSPECTION, NORMOCEPHALIC - Eye Exam Eye Exam: absent: Scleral icterus - ENT Exam ENT Exam: Mucous Membranes Dry, Normal External Ear Exam - Neck Exam Neck Exam: absent: Lymphadenopathy - Respiratory Exam Respiratory Exam: Decreased Breath Sounds - Cardiovascular Exam Cardiovascular Exam: REGULAR RHYTHM - GI/Abdominal Exam GI & Abdominal Exam: Distended, Soft - Rectal Exam Rectal Exam: Deferred - Exam Exam: NORMAL INSPECTION - Extremities Exam Extremities Exam: absent: Pedal Edema - Back Exam Back Exam: absent: CVA tenderness (L), CVA tenderness (R) - Neurological Exam Neurological Exam: Altered Assessment and Plan (1) MEAL ROOM HAND (ventriculoperitoneal) shunt status Status: Acute (2) Decubitus skin ulcer Status: Acute (3) UTI (urinary tract infection) Status: Acute (4) Bacteremia Status: Acute (5) Change in mental status Status: Acute (6) Hydrocephalus Status: Acute (7) Traumatic brain injury Status: Chronic (8) Seizure Status: Chronic - Assessment and Plan (Free Text) Assessment: cont iv antibiotics - neuro not willing to obtain CSF source for coag neg astaph on admission remains unclear to complete 14 days IV rx if sepsis recurs may need revision and or replacement
--- NOTE | 2018-09-07 21:59 | CP.PCM.PN ---
Subjective - Date & Time of Evaluation Date of Evaluation: 08/29/18 Time of Evaluation: 11:00 - Subjective Subjective: Patient remains stable Still with no verbal response. gazes but no other response. Has no fever. Vitals are stable except for slight tachy CBC and CMP are normal except for slight low sodium 130. Objective - Vital Signs/Intake and Output Vital Signs (last 24 hours): Temp Pulse Resp BP Pulse Ox 98.5 F 109 H 18 106/68 100 09/07/18 20:01 09/07/18 20:01 09/07/18 20:01 09/07/18 20:01 09/07/18 20:01 - Medications Medications: Current Medications Ascorbic Acid (Vitamin C 500 Mg Tab) 500 mg PEG DAILY [facility] Last Admin: 09/07/18 08:07 Dose: 500 mg Bacitracin (Bacitracin Oint) 1 applic TOP DAILY [facility] Last Admin: 09/07/18 08:07 Dose: 1 applic Cadexomer Iodine (Iodosorb) 1 applic TOP DAILY [facility] Last Admin: 09/07/18 08:08 Dose: 1 applic Dantrolene Sodium (Dantrium) 50 mg PO Q8 [facility] Last Admin: 08/30/18 00:53 Dose: 50 mg Cefepime HCl 1 gm/ Sodium (Chloride) 100 mls @ 100 mls/hr IVPB Q12 [facility]; P rotocol Last Admin: 09/07/18 08:08 Dose: 100 mls/hr Vancomycin HCl 1 gm/ Sodium (Chloride) 250 mls @ 166.667 mls/hr IVPB Q24H [facility]; Protocol Last Admin: 09/07/18 13:08 Dose: 166.667 mls/hr Levetiracetam (Keppra) 500 mg PEG Q12H [facility] Last Admin: 09/07/18 08:07 Dose: 500 mg Vitamin B Complex/Vit C/Folic Acid (Nephro-Radha) 1 tab PEG DAILY [facility] Last Admin: 09/07/18 08:07 Dose: 1 tab Zinc Sulfate (Zinc Sulfate 220 Mg Cap) 220 mg PEG DAILY [facility] Last Admin: 09/07/18 08:07 Dose: 220 mg - Labs Labs: 09/06/18 05:13 09/06/18 05:13 - Eye Exam Eye Exam: Normal appearance - ENT Exam ENT Exam: Mucous Membranes Moist - Respiratory Exam Respiratory Exam: Clear to Ausculation Bilateral - Cardiovascular Exam Cardiovascular Exam: Tachycardia - GI/Abdominal Exam GI & Abdominal Exam: Normal Bowel Sounds - Neurological Exam Neurological Exam: Awake Assessment and Plan (1) Hydrocephalus Status: Acute (2) Traumatic brain injury Status: Chronic (3) Change in mental status Status: Acute - Assessment and Plan (Free Text) Plan: Cont meds Cont neuro eval cont tx cont PT subacute 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
--- NOTE | 2018-09-07 22:04 | CP.PCM.PN ---
Subjective - Date & Time of Evaluation Date of Evaluation: 08/30/18 Time of Evaluation: 11:20 - Subjective Subjective: Patient remains nonverbal Has no response to any stimuli On her 5th post op post COAL YARD SUPERVISOR shunt CBC is normal CM{ showed a sodium of 129 Noted persistent tachycardia Noted Psudomonas in urine. Has no fever. Objective - Vital Signs/Intake and Output Vital Signs (last 24 hours): Temp Pulse Resp BP Pulse Ox 98.5 F 109 H 18 106/68 100 09/07/18 20:01 09/07/18 20:01 09/07/18 20:01 09/07/18 20:01 09/07/18 20:01 - Medications Medications: Current Medications Ascorbic Acid (Vitamin C 500 Mg Tab) 500 mg PEG DAILY [facility] Last Admin: 09/07/18 08:07 Dose: 500 mg Bacitracin (Bacitracin Oint) 1 applic TOP DAILY [facility] Last Admin: 09/07/18 08:07 Dose: 1 applic Cadexomer Iodine (Iodosorb) 1 applic TOP DAILY [facility] Last Admin: 09/07/18 08:08 Dose: 1 applic Dantrolene Sodium (Dantrium) 50 mg PO Q8 [facility] Last Admin: 08/30/18 00:53 Dose: 50 mg Cefepime HCl 1 gm/ Sodium (Chloride) 100 mls @ 100 mls/hr IVPB Q12 [facility]; Protocol Last Admin: 09/07/18 21:58 Dose: 100 mls/hr Vancomycin HCl 1 gm/ Sodium (Chloride) 250 mls @ 166.667 mls/hr IVPB Q24H [facility]; Protocol Last Admin: 09/07/18 13:08 Dose: 166.667 mls/hr Levetiracetam (Keppra) 500 mg PEG Q12H [facility] Last Admin: 09/07/18 21:59 Dose: 500 mg Vitamin B Complex/Vit C/Folic Acid (Nephro-Radha) 1 tab PEG DAILY [facility] Last Admin: 09/07/18 08:07 Dose: 1 tab Zinc Sulfate (Zinc Sulfate 220 Mg Cap) 220 mg PEG DAILY [facility] Last Admin: 09/07/18 08:07 Dose: 220 mg - Labs Labs: 09/06/18 05:13 09/06/18 05:13 - Head Exam Head Exam: NORMAL INSPECTION - Eye Exam Eye Exam: Normal appearance - ENT Exam ENT Exam: Mucous Membranes Moist - Respiratory Exam Respiratory Exam: Clear to Ausculation Bilateral - Cardiovascular Exam Cardiovascular Exam: Tachycardia - GI/Abdominal Exam GI & Abdominal Exam: Normal Bowel Sounds - Neurological Exam Neurological Exam: Awake - Skin Skin Exam: Dry Assessment and Plan (1) Hydrocephalus Status: Acute (2) Traumatic brain injury Status: Chronic (3) Change in mental status Status: Acute (4) Hyponatremia Status: Acute (5) Tachycardia Status: Acute (6) UTI (urinary tract infection) Status: Acute - Assessment and Plan (Free Text) Plan: Cont meds Cont tx Cont iv antibiotics monitor lytes sodium CBC Cont PT
--- NOTE | 2018-09-07 22:09 | CP.PCM.PN ---
Subjective - Date & Time of Evaluation Date of Evaluation: 09/04/18 Time of Evaluation: 13:00 - Subjective Subjective: patient remains nonverbal Opens eyes Has no fever. CBC and cmp are normal BP is normal Objective - Vital Signs/Intake and Output Vital Signs (last 24 hours): Temp Pulse Resp BP Pulse Ox 98.5 F 109 H 18 106/68 100 09/07/18 20:01 09/07/18 20:01 09/07/18 20:01 09/07/18 20:01 09/07/18 20:01 - Medications Medications: Current Medications Ascorbic Acid (Vitamin C 500 Mg Tab) 500 mg PEG DAILY [facility] Last Admin: 09/07/18 08:07 Dose: 500 mg Bacitracin (Bacitracin Oint) 1 applic TOP DAILY [facility] Last Admin: 09/07/18 08:07 Dose: 1 applic Cadexomer Iodine (Iodosorb) 1 applic TOP DAILY [facility] Last Admin: 09/07/18 08:08 Dose: 1 applic Dantrolene Sodium (Dantrium) 50 mg PO Q8 [facility] Last Admin: 08/30/18 00:53 Dose: 50 mg Cefepime HCl 1 gm/ Sodium (Chloride) 100 mls @ 100 mls/hr IVPB Q12 [facility]; Protocol Last Admin: 09/07/18 21:58 Dose: 100 mls/hr Vancomycin HCl 1 gm/ Sodium (Chloride) 250 mls @ 166.667 mls/hr IVPB Q24H [facility]; Protocol Last Admin: 09/07/18 13:08 Dose: 166.667 mls/hr Levetiracetam (Keppra) 500 mg PEG Q12H [facility] Last Admin: 09/07/18 21:59 Dose: 500 mg Vitamin B Complex/Vit C/Folic Acid (Nephro-Radha) 1 tab PEG DAILY [facility] Last Admin: 09/07/18 08:07 Dose: 1 tab Zinc Sulfate (Zinc Sulfate 220 Mg Cap) 220 mg PEG DAILY [facility] Last Admin: 09/07/18 08:07 Dose: 220 mg - Labs Labs: 09/06/18 05:13 09/06/18 05:13 - Eye Exam Eye Exam: Normal appearance - ENT Exam ENT Exam: Mucous Membranes Moist - Respiratory Exam Respiratory Exam: Clear to Ausculation Bilateral - Cardiovascular Exam Cardiovascular Exam: Tachycardia - GI/Abdominal Exam GI & Abdominal Exam: Normal Bowel Sounds - Neurological Exam Neurological Exam: Awake Additional comments: non verbal Assessment and Plan (1) Hydrocephalus Status: Acute (2) Traumatic brain injury Status: Chronic (3) Change in mental status Status: Acute (4) Hyponatremia Status: Acute (5) Tachycardia Status: Acute (6) UTI (urinary tract infection) Status: Acute - Assessment and Plan (Free Text) Plan: Cont meds Cont tx Cont 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
--- NOTE | 2018-09-07 22:12 | CP.PCM.PN ---
Subjective - Date & Time of Evaluation Date of Evaluation: 09/05/18 Time of Evaluation: 11:00 - Subjective Subjective: Patient remains stable Has no fever Has slight tachy CBC and CMP are normal. Objective - Vital Signs/Intake and Output Vital Signs (last 24 hours): Temp Pulse Resp BP Pulse Ox 98.5 F 109 H 18 106/68 100 09/07/18 20:01 09/07/18 20:01 09/07/18 20:01 09/07/18 20:01 09/07/18 20:01 - Medications Medications: Current Medications Ascorbic Acid (Vitamin C 500 Mg Tab) 500 mg PEG DAILY [facility] Last Admin: 09/07/18 08:07 Dose: 500 mg Bacitracin (Bacitracin Oint) 1 applic TOP DAILY [facility] Last Admin: 09/07/18 08:07 Dose: 1 applic Cadexomer Iodine (Iodosorb) 1 applic TOP DAILY [facility] Last Admin: 09/07/18 08:08 Dose: 1 applic Dantrolene Sodium (Dantrium) 50 mg PO Q8 [facility] Last Admin: 08/30/18 00:53 Dose: 50 mg Cefepime HCl 1 gm/ Sodium (Chloride) 100 mls @ 100 mls/hr IVPB Q12 [facility]; Protocol Last Admin: 09/07/18 21:58 Dose: 100 mls/hr Vancomycin HCl 1 gm/ Sodium (Chloride) 250 mls @ 166.667 mls/hr IVPB Q24H [facility]; Protocol Last Admin: 09/07/18 13:08 Dose: 166.667 mls/hr Levetiracetam (Keppra) 500 mg PEG Q12H [facility] Last Admin: 09/07/18 21:59 Dose: 500 mg Vitamin B Complex/Vit C/Folic Acid (Nephro-Radha) 1 tab PEG DAILY [facility] Last Admin: 09/07/18 08:07 Dose: 1 tab Zinc Sulfate (Zinc Sulfate 220 Mg Cap) 220 mg PEG DAILY [facility] Last Admin: 09/07/18 08:07 Dose: 220 mg - Labs Labs: 09/06/18 05:13 09/06/18 05:13 - Head Exam Head Exam: NORMAL INSPECTION - ENT Exam ENT Exam: Mucous Membranes Moist - Respiratory Exam Respiratory Exam: Clear to Ausculation Bilateral - Cardiovascular Exam Cardiovascular Exam: Tachycardia - GI/Abdominal Exam GI & Abdominal Exam: Normal Bowel Sounds Assessment and Plan (1) Hydrocephalus Status: Acute (2) Traumatic brain injury Status: Chronic (3) Change in mental status Status: Acute (4) Hyponatremia Status: Acute (5) Tachycardia Status: Acute (6) UTI (urinary tract infection) Status: Acute - Assessment and Plan (Free Text) Plan: Cont meds Con ttx Cont Pt cont iv antibiotics
--- NOTE | 2018-09-07 22:14 | CP.PCM.PN ---
Subjective - Date & Time of Evaluation Date of Evaluation: 09/06/18 Time of Evaluation: 16:00 - Subjective Subjective: Patient has tachycardia afebrile remains non verbal opens eyes and has no other rsponse Objective - Vital Signs/Intake and Output Vital Signs (last 24 hours): Temp Pulse Resp BP Pulse Ox 98.5 F 109 H 18 106/68 100 09/07/18 20:01 09/07/18 20:01 09/07/18 20:01 09/07/18 20:01 09/07/18 20:01 - Medications Medications: Current Medications Ascorbic Acid (Vitamin C 500 Mg Tab) 500 mg PEG DAILY VALENTNI Last Admin: 09/07/18 08:07 Dose: 500 mg Bacitracin (Bacitracin Oint) 1 applic TOP DAILY VALENTIN Last Admin: 09/07/18 08:07 Dose: 1 applic Cadexomer Iodine (Iodosorb) 1 applic TOP DAILY VALENTIN Last Admin: 09/07/18 08:08 Dose: 1 applic Dantrolene Sodium (Dantrium) 50 mg PO Q8 VALENTIN Last Admin: 08/30/18 00:53 Dose: 50 mg Cefepime HCl 1 gm/ Sodium (Chloride) 100 mls @ 100 mls/hr IVPB Q12 VALENTIN; Protocol Last Admin: 09/07/18 21:58 Dose: 100 mls/hr Vancomycin HCl 1 gm/ Sodium (Chloride) 250 mls @ 166.667 mls/hr IVPB Q24H VALENTIN; Protocol Last Admin: 09/07/18 13:08 Dose: 166.667 mls/hr Levetiracetam (Keppra) 500 mg PEG Q12H VALENTIN Last Admin: 09/07/18 21:59 Dose: 500 mg Vitamin B Complex/Vit C/Folic Acid (Nephro-Radha) 1 tab PEG DAILY VALENTIN Last Admin: 09/07/18 08:07 Dose: 1 tab Zinc Sulfate (Zinc Sulfate 220 Mg Cap) 220 mg PEG DAILY VALENTIN Last Admin: 09/07/18 08:07 Dose: 220 mg - Labs Labs: 09/06/18 05:13 09/06/18 05:13 - Head Exam Head Exam: NORMAL INSPECTION - Eye Exam Eye Exam: Normal appearance - Respiratory Exam Respiratory Exam: Clear to Ausculation Bilateral - Cardiovascular Exam Cardiovascular Exam: Tachycardia - GI/Abdominal Exam GI & Abdominal Exam: Soft Assessment and Plan (1) Hydrocephalus Status: Acute (2) Traumatic brain injury Status: Chronic (3) Change in mental status Status: Acute (4) Hyponatremia Status: Acute (5) Tachycardia Status: Acute (6) UTI (urinary tract infection) Status: Acute - Assessment and Plan (Free Text) Plan: Cont meds Cont nursing care Cont PT follow up re placement.
--- NOTE | 2018-09-07 22:16 | CP.PCM.PN ---
Subjective - Date & Time of Evaluation Date of Evaluation: 09/07/18 Time of Evaluation: 13:00 - Subjective Subjective: patient remains nonverbal Has no fever. Objective - Vital Signs/Intake and Output Vital Signs (last 24 hours): Temp Pulse Resp BP Pulse Ox 98.5 F 109 H 18 106/68 100 09/07/18 20:01 09/07/18 20:01 09/07/18 20:01 09/07/18 20:01 09/07/18 20:01 - Medications Medications: Current Medications Ascorbic Acid (Vitamin C 500 Mg Tab) 500 mg PEG DAILY VALENTIN Last Admin: 09/07/18 08:07 Dose: 500 mg Bacitracin (Bacitracin Oint) 1 applic TOP DAILY VALENTIN Last Admin: 09/07/18 08:07 Dose: 1 applic Cadexomer Iodine (Iodosorb) 1 applic TOP DAILY VALENTIN Last Admin: 09/07/18 08:08 Dose: 1 applic Dantrolene Sodium (Dantrium) 50 mg PO Q8 VALENTIN Last Admin: 08/30/18 00:53 Dose: 50 mg Cefepime HCl 1 gm/ Sodium (Chloride) 100 mls @ 100 mls/hr IVPB Q12 VALENTIN; Protocol Last Admin: 09/07/18 21:58 Dose: 100 mls/hr Vancomycin HCl 1 gm/ Sodium (Chloride) 250 mls @ 166.667 mls/hr IVPB Q24H VALENTIN; Protocol Last Admin: 09/07/18 13:08 Dose: 166.667 mls/hr Levetiracetam (Keppra) 500 mg PEG Q12H VALENTIN Last Admin: 09/07/18 21:59 Dose: 500 mg Vitamin B Complex/Vit C/Folic Acid (Nephro-Radha) 1 tab PEG DAILY VALENTIN Last Admin: 09/07/18 08:07 Dose: 1 tab Zinc Sulfate (Zinc Sulfate 220 Mg Cap) 220 mg PEG DAILY VALENTIN Last Admin: 09/07/18 08:07 Dose: 220 mg - Labs Labs: 09/06/18 05:13 09/06/18 05:13 - Eye Exam Eye Exam: Normal appearance - ENT Exam ENT Exam: Mucous Membranes Moist - Respiratory Exam Respiratory Exam: Clear to Ausculation Bilateral - Cardiovascular Exam Cardiovascular Exam: Tachycardia - GI/Abdominal Exam GI & Abdominal Exam: Normal Bowel Sounds Assessment and Plan (1) Hydrocephalus Status: Acute (2) Traumatic brain injury Status: Chronic (3) Change in mental status Status: Acute (4) Hyponatremia Status: Acute (5) Tachycardia Status: Acute (6) UTI (urinary tract infection) Status: Acute - Assessment and Plan (Free Text) Plan: cont meds Cont tx Cont PT Follow up re placement or subacute rehab very poor prognosis.
[2018-09-08 08:16] VITALS: RESP 18; TEMP 98.2
[2018-09-08] MEDS: Cefepime 1 GM in Sodium Chloride 0.9% 100 ML IVPB SCH (09:27)
[2018-09-08] MEDS: Cadexomer Iodine 0.9% 40 APPLIC/40 G TUBE TOP SCH (09:28)
[2018-09-08] MEDS: Bacitracin OINT 15GM TOP SCH (09:28)
[2018-09-08] MEDS: levETIRAcetam 100 mg/ml (5ml) Oral Syringe PEG SCH (09:29)
[2018-09-08] MEDS: Multivitamin Vitamin B Complex (Nephro-Vite) Tab PEG SCH (09:29)
[2018-09-08 11:30] VITALS: O2SAT 100
--- NOTE | 2018-09-08 11:47 | CP.PCM.PN ---
Subjective - Date & Time of Evaluation Date of Evaluation: 09/08/18 Time of Evaluation: 08:00 - Subjective Subjective: afebrile nonverbal bilateral weakness repeat c/s neg so far Objective - Vital Signs/Intake and Output Vital Signs (last 24 hours): Temp Pulse Resp BP Pulse Ox 98.2 F 97 H 18 97/53 L 100 09/08/18 08:15 09/08/18 11:22 09/08/18 08:15 09/08/18 08:15 09/08/18 11:22 - Medications Medications: Current Medications Ascorbic Acid (Vitamin C 500 Mg Tab) 500 mg PEG DAILY VALENTIN Last Admin: 09/08/18 09:29 Dose: 500 mg Bacitracin (Bacitracin Oint) 1 applic TOP DAILY VALENTIN Last Admin: 09/08/18 09:28 Dose: 1 applic Cadexomer Iodine (Iodosorb) 1 applic TOP DAILY VALENTIN Last Admin: 09/08/18 09:28 Dose: 1 applic Dantrolene Sodium (Dantrium) 50 mg PO Q8 VALENTIN Last Admin: 08/30/18 00:53 Dose: 50 mg Cefepime HCl 1 gm/ Sodium (Chloride) 100 mls @ 100 mls/hr IVPB Q12 VALENTIN; Protocol Last Admin: 09/08/18 09:27 Dose: 100 mls/hr Vancomycin HCl 1 gm/ Sodium (Chloride) 250 mls @ 166.667 mls/hr IVPB Q24H VALENTIN; Protocol Last Admin: 09/07/18 13:08 Dose: 166.667 mls/hr Levetiracetam (Keppra) 500 mg PEG Q12H VALENTIN Last Admin: 09/08/18 09:29 Dose: 500 mg Vitamin B Complex/Vit C/Folic Acid (Nephro-Radha) 1 tab PEG DAILY VALENTIN Last Admin: 09/08/18 09:29 Dose: 1 tab Zinc Sulfate (Zinc Sulfate 220 Mg Cap) 220 mg PEG DAILY VALENTIN Last Admin: 09/08/18 09:29 Dose: 220 mg - Labs Labs: 09/06/18 05:13 09/06/18 05:13 - Constitutional Appears: Confused, Cachectic, Chronically Ill - Head Exam Head Exam: absent: ATRAUMATIC, NORMAL INSPECTION, NORMOCEPHALIC - Eye Exam Eye Exam: absent: Scleral icterus - ENT Exam ENT Exam: Normal External Ear Exam - Neck Exam Neck Exam: absent: Lymphadenopathy - Respiratory Exam Respiratory Exam: Decreased Breath Sounds - Cardiovascular Exam Cardiovascular Exam: REGULAR RHYTHM - GI/Abdominal Exam GI & Abdominal Exam: Distended, Soft - Rectal Exam Rectal Exam: Deferred - Exam Exam: NORMAL INSPECTION - Extremities Exam Extremities Exam: absent: Pedal Edema - Back Exam Back Exam: absent: CVA tenderness (L), CVA tenderness (R) - Neurological Exam Neurological Exam: Altered Additional comments: spastic upper lower extremities - Psychiatric Exam Psychiatric exam: Depressed - Skin Skin Exam: Dry Assessment and Plan (1) FREIGHT COORDINATOR (ventriculoperitoneal) shunt status Status: Acute (2) Decubitus skin ulcer Status: Acute (3) UTI (urinary tract infection) Status: Acute (4) Bacteremia Status: Acute (5) Change in mental status Status: Acute (6) Hydrocephalus Status: Acute (7) Traumatic brain injury Status: Chronic (8) Seizure Status: Chronic - Assessment and Plan (Free Text) Assessment: cont iv antibiotics source for coag neg astaph on admission remains unclear to complete 14 days IV rx then reculture if sepsis recurs may need revision and or replacement shunt
[2018-09-08 12:03] VITALS: BP 138/50; PULSE 90
--- NOTE | 2018-09-14 13:57 | PQF ---
PROVIDER RESPONSE TEXT: Pressure ulcer stage 2, limited to the breakdown of the skin REVIEWER QUERY TEXT: Skin Ulcer Type and Severity Bilateral Sacral Unstageable Pressure Skin Ulcer is documented in the Medical Record by the Wound Car e RN. Please specify the type and severity Such as: Type: -- Pressure ulcer along with the stage if known -- Diabetic skin ulcer -- Venous stasis ulcer -- Other, please specify Severity: -- Limited to breakdown of skin -- With fat layer exposure -- With necrosis of muscle -- With necrosis of bone -- Other, please specify The patient's Clinical Indicators include: Wound RN: Sacral PI assessed and measures 6.0 cm long x 5.5 cm wide and 0.1 cm deep. It is butterfly shaped. The left side has 2 small areas of slough and the right side is clean and pink. Sacral wound cleansed with NS, medihoney and foam dressing applied after applying skin prep to periwo und. Recommend to change medihoney to iodosorb daily and place on low air loss mattress. Query created by: Edith Sanchez on 08/31/2018 8:00 AM Electronically signed by: Parish Berrios MD 09/14/2018 1:54 PM
--- NOTE | 2018-09-14 13:57 | PQF ---
PROVIDER RESPONSE TEXT: Underweight, hx of traumatic brain injury with PEG in place. REVIEWER QUERY TEXT: Documentation Clarification Your help is requested in clarifying the following clinical documentation, if you can please further specify in the medical record and discharge summary. 2 (TWO ) clarifications: 1) Would you please clarify if there is an associated diagnosis or not to go along with the low BMI o f 16.7. ( ie: Small framed, underweight, cachexia etc) 2) If YES please document the BMI as well. Parking Lot Laborer: Classification : Underweight: < 18.5. The patient's Clinical Indicators include: Parking Lot Laborer note: 5' 6", weight on prior admission 08/24/18 110 pounds, BMI 16.7. Classification: Underweight See forge heater recommendations Query created by: Edith Sanchez on 08/30/2018 11:08 AM Electronically signed by: Parish Berrios MD 09/14/2018 1:54 PM
--- NOTE | 2018-09-14 13:57 | PQF ---
PROVIDER RESPONSE TEXT: Unable to determine REVIEWER QUERY TEXT: Present On Admission It is unclear whether a diagnosis was present on admission. Your help is needed. Please clarify the POA status Such as: -- Present on admission -- Not present on admission -- Unable to determine Was the UTI and Bacteremia possibly Present on admission? Admitted on 08/26/18 with AMS. Recent insertion of RADIOLOGY EQUIPMENT SERVICER shunt. Spiked a temperature on 08/28/18. WBC normal. . 08/29/18 Blood CS: Coagulase Neg Staph x 2. Urine CS: Pseudomonas Aeruginosa Rx: IVAB The patient's Clinical Indicators include: Admitted on 08/26/18 with AMS. Recent insertion of RADIOLOGY EQUIPMENT SERVICER shunt. Spiked a temperature on 08/28/18. WBC normal. . 08/29/18 Blood CS: Coagulase Neg Staph x 2. Urine CS: Pseudomonas Aeruginosa Rx: IVAB Query created by: Edith Sanchez on 09/05/2018 1:40 PM Electronically signed by: Parish Berrios MD 09/14/2018 1:54 PM
== END 2018-09-08 14:12 | DRG 533 ==
LOC: H.TEL 22:31
PROVIDERS: ADMIT Family Medicine; ATTEND Family Medicine
DX: G91.8 Other hydrocephalus (principal); L89.152 Pressure ulcer of sacral region, stage 2; R78.81 Bacteremia; E87.1 Hypo-osmolality and hyponatremia; N39.0 Urinary tract infection, site not specified; B96.5 Pseudomonas (aeruginosa) (mallei) (pseudomallei) as the cause of diseases classified elsewhere; Z98.2 Presence of cerebrospinal fluid drainage device; R63.6 Underweight; Z68.1 Body mass index [BMI] 19.9 or less, adult; R41.82 Altered mental status, unspecified; R00.0 Tachycardia, unspecified; G40.909 Epilepsy, unspecified, not intractable, without status epilepticus; Z87.820 Personal history of traumatic brain injury